=== PATIENT | female | born 1940 | race Caucasian/White ===

== ENCOUNTER → 2024-02-23 | Outpatient (CLI) | payer MEDICARE, SELFPAY ==
--- NOTE | 2024-02-23 10:09 | XR_ITS ---
Examination: Shoulder bilateral, 6 views Technique: Shoulder AP internal rotation, AP external rotation, Y view each shoulder total 6 views Exam date and time :February 23, 2024 1018 hours INDICATIONS: Bilateral shoulder pain beginning 2 months ago. FINDINGS: There are osteopenia Bilateral moderate narrowing glenohumeral joints Bilateral mild calcific tendinitis No fracture or dislocation involving either shoulder Bilateral moderate osteoarthritis acromioclavicular joints IMPRESSION: Bilateral moderate narrowing glenohumeral joints Bilateral mild shoulder calcific tendinitis
== END | disposition home or self-care (01) ==
PROVIDERS: PCP Internal Medicine; Referring Provider Internal Medicine; Visit Provider Internal Medicine
DX: M75.32 Calcific tendinitis of left shoulder (principal); M75.31 Calcific tendinitis of right shoulder; M25.812 Other specified joint disorders, left shoulder; M25.811 Other specified joint disorders, right shoulder
CPT/HCPCS: 73030

== ENCOUNTER → 2024-03-08 | Outpatient (CLI) | payer MEDICARE, BC, SELFPAY ==
--- NOTE | 2024-03-08 | XR_ITS ---
EXAMINATION: Cervical spine, 5 views Technique: Cervical spine AP, AP odontoid, lateral, bilateral obliques, 5 views Exam date and time: March 08, 2024 1141 hours INDICATIONS: Neck pain 3 months history cervical spine surgery FINDINGS: Severe osteopenia Reversal normal cervical lordosis with 2.5 mm anterolisthesis C2 on C3 Advanced degenerative disc disease C4-C5, C5-C6, C6-C7 with significant bilateral neural foraminal stenosis at these levels Intact odontoid IMPRESSION: Advanced degenerative disc disease C4-C5, C5-C6, C6-C7 with significant bilateral neural foraminal stenosis
== END | disposition home or self-care (01) ==
LOC: CDIM 10:50
PROVIDERS: PCP Internal Medicine; Referring Provider Internal Medicine; Visit Provider Internal Medicine
DX: M50.321 Other cervical disc degeneration at C4-C5 level (principal); M48.02 Spinal stenosis, cervical region
CPT/HCPCS: 72050

== ENCOUNTER → 2024-09-22 | Outpatient (CLI) | payer MEDICARE, BC, SELFPAY ==
[2024-09-22 10:35] LABS: Basophils # (Auto) 0.0 Thou/mm3 (0.0-0.2); Basophils % (Auto) 0 % (0-2.5); Eosinophils # (Auto) 0.0 Thou/mm3 (0.0-0.5); Eosinophils % (Auto) 1 % (0-10); Hematocrit 47.7 % (36.0-46.0); Hemoglobin 15.6 g/dL (12.0-16.0); Immature Granulocytes Auto 0.02 Thou/mm3 (0.00-0.00); Lymphocytes # (Auto) 1.0 Thou/mm3 (1.0-4.8); Lymphocytes % (Auto) 18 % (10-50); Mean Corpuscular HGB Conc 32.7 g/dl (31.0-37.0); Mean Corpuscular Hemoglobin 30.8 pg (25.0-35.0); Mean Corpuscular Volume 94 fL (80-100); Monocytes # (Auto) 0.4 Thou/mm3 (0.0-0.8); Monocytes % (Auto) 7 % (0-12); Neutrophils # (Auto) 3.8 Thou/mm3 (1.8-7.7); Neutrophils % (Auto) 73 % (37-80); Nucleated Red Blood Cell # 0.00 Thou/mm3 (0.00-0.00); Nucleated Red Blood Cell % 0 /100 WBC (0); Platelet Count 179 Thou/mm3 (140-440); RDW Standard Deviation 45.3 fL (36.4-46.3); Red Blood Count 5.07 Miln/mm3 (4.00-5.20); White Blood Count 5.2 Thou/mm3 (3.6-11.0)
[2024-09-22 10:45] LABS: Glucose Estimated Average 137 mg/dL (80-131); Hemoglobin A1C 6.4 % Hgb (4.8-6.0)
[2024-09-22 10:54] LABS: Alanine Aminotransferase 248 U/L (10-49); Albumin, Serum 4.7 gm/dL (3.4-4.8); Albumin/Globulin Ratio 2.1 (1.2-2.2); Alkaline Phosphatase 84 U/L (46-116); Anion Gap 11 (7-16); Aspartate Amino Transferase 272 U/L (0-34); BUN/Creatinine Ratio 10 Ratio (12-20); Bilirubin,Total 1.2 mg/dL (0.3-1.2); Blood Urea Nitrogen 11 mg/dL (9-23); Calcium 10.1 mg/dL (8.3-10.6); Calcium (Corrected) 10.1 mg/dL (8.5-10.1); Carbon Dioxide 26.3 mMol/L (20.0-31.0); Cardiac Risk Estimate 2.4 RATIO (3.7-5.6); Chloride 103 mMol/L (98-107); Cholesterol 168 mg/dL (132-200); Creatinine (Component) 1.1 mg/dL (0.6-1.3); Free T4 (Free Thyroxine) 1.20 ng/dL (0.89-1.76); Globulin 2.2 gm/dL (2.3-3.5); Glucose 151 mg/dL (74-106); HDL Cholesterol 70 mg/dL (40-60); LDL Cholesterol,Calculated 74 mg/dL (0-130); Osmolality,Calculated 281 (275-295); Potassium 4.4 mMol/L (3.4-5.1); Sodium 140 mMol/L (136-145); Thyroid Stimulating Hormone 1.26 uIU/mL (0.55-4.78); Total Protein 6.9 gm/dL (5.7-8.2); Triglycerides 119 mg/dL (30-150); eGFR 50 See Note
[2024-09-22 10:55] LABS: Vitamin D 25 Hydroxy Total 39.3 ng/mL (7.3-40.2)
== END | disposition home or self-care (01) ==
PROVIDERS: PCP Internal Medicine; Referring Provider Internal Medicine; Visit Provider Internal Medicine
DX: I11.0 Hypertensive heart disease with heart failure (principal); E11.9 Type 2 diabetes mellitus without complications; E55.9 Vitamin D deficiency, unspecified; E78.2 Mixed hyperlipidemia; E03.9 Hypothyroidism, unspecified
CPT/HCPCS: 36415; 80053; 80061; 82306; 83036; 84439; 84443; 85025

== ENCOUNTER 2024-10-18 20:46 | Inpatient (IN) | payer MEDICARE, BC, SELFPAY ==
[2024-10-18 21:05] VITALS: BP 129/94; PULSE 114; RESP 20; TEMP 36.7; O2SAT 96
--- NOTE | 2024-10-18 21:06 | PD.EDGIBLD ---
ED GI Bleed RME/HPI General Chief complaint: Abdominal Pain Stated complaint: BLACK TARRY STOOLS Time Seen by Provider: 10/18/24 21:17 Arrival date/time: 10/18/24 20:46 RME / HPI RME / HPI Narrative: See [facility] for Dr. Bonds's HPI documentation. Related Data Home Medications ?Medication ?Instructions ?Recorded ?Confirmed diltiazem HCl 300 mg 300 mg PO HS 04/14/22 10/19/24 capsule,extended release 24 hr gabapentin 400 mg capsule 400 mg PO TID 10/19/24 10/19/24 pantoprazole 40 mg tablet,delayed 40 mg PO QDAY 10/19/24 10/19/24 release valsartan 80 mg tablet 80 mg PO QDAY 10/19/24 10/19/24 Allergies Allergy/AdvReac Type Severity Reaction Status Date / Time No Known Allergies Allergy Verified 09/15/23 20:47 Review of Systems Review of Systems Systems Reviewed: All systems reviewed, normal except as documented Past Medical History Past Medical History NEUROLOGIC: Negative Seizures CARDIAC: Positive Hypercholesterolemia, Hypertension and Hypotension; Negative Cardiac Disorders or Congestive Heart Failure RESPIRATORY: Negative Chronic Obstructive Pulmonary Disease (COPD), Asthma or Sleep Apnea GASTROINTESTINAL: Positive Gastrointestinal Disorders, Gastrointestinal Bleed, Hiatal Hernia and Gastroesophageal Reflux Disease GENITOURINARY: Negative Genitourinary Disorders or Renal Disease REPRODUCTIVE: Positive Breast Cancer MUSCULOSKELETAL: Positive Musculoskeletal Disorders ENDOCRINE: Negative Endocrine Disorders, Diabetes Mellitus Type 1 or Diabetes Mellitus Type 2 HEMATOLOGIC: Negative Sickle Cell Disease PSYCHO/SOCIAL: Positive Depression OTHER HISTORY: Positive Hospitalization, Cancer and Breast Cancer; Negative Blood Transfusions, Blood Transfusion Reaction, Anesthesia Reactions, Chemotherapy or Radiation Therapy Surgical History SURGICAL: Positive Joint Replacement and Mastectomy (BILATERAL) Social History SMOKING STATUS: Never smoker SECOND HAND EXPOSURE: No ED Exam Narrative Physical exam: See [facility] for Dr. Bonds's physical exam documentation. Course Quality Measures none Orders Category Date Time Status Bedside COVID-19 Antigen Test NOW Care 10/18/24 21:21 Active Bedside Influenza A&B Antigen Test NOW Care 10/18/24 21:21 Completed COVID-19 Screening Questionnaire NOW Care 10/19/24 01:[address] Screening NOW Care 10/18/24 21:23 Active Decision to Admit X1 Care 10/19/24 01:50 Completed EKG (ED ONLY) *Do not use* NOW Care 10/18/24 21:23 Completed NPO NOW Care 10/19/24 01:50 Active Saline [Insert IV] NOW Care 10/18/24 21:21 Active Straight [In and Out Catheter] X1 Care 10/18/24 21:21 Active Consult to Gastroenterology Stat Cons 10/19/24 01:51 Ordered Diet NPO (NOW) Diet 10/19/24 01:[address] angio abdomen pelvis Stat Exams 10/18/24 21:22 Completed EKG (ED Only) Stat Exams 10/18/24 21:23 Draft XR chest 1V portable Stat Exams 10/18/24 21:23 Completed Amylase Stat Lab 10/18/24 21:39 Completed Bilirubin,Direct Stat Lab 10/18/24 21:39 Completed Blood Culture (Lab) Stat Lab 10/18/24 21:44 Received CBC Stat Lab 10/18/24 21:39 Completed CMP [Comprehensive Metabolic Panel] Stat Lab 10/18/24 21:39 Completed CRP [C-Reactive Protein] Stat Lab 10/18/24 21:39 Completed ESR [Sed Rate (ESR)] Stat Lab 10/18/24 21:39 Completed Hemoglobin and Hematocrit Stat Lab 10/19/24 01:17 Completed Lactate (Lactic Acid) Stat Lab 10/18/24 21:39 Completed Lactic Acid, 3 HR Stat Lab 10/19/24 01:17 Completed Lipase Stat Lab 10/18/24 21:39 Completed Magnesium Stat Lab 10/18/24 21:39 Completed PT [Prothrombin Time with INR] Stat Lab 10/18/24 21:39 Completed PTT [Partial Thromboplastin Time] Stat Lab 10/18/24 21:39 Completed Procalcitonin Stat Lab 10/18/24 21:39 Completed TSH [Thyroid Stimulating Hormone] Stat Lab 10/18/24 21:39 Completed Troponin I Stat Lab 10/18/24 21:39 Completed UA, C/S IF [Urinalysis, C/S if Indicated] Stat Lab 10/19/24 06:00 Completed Famotidine Inj [Pepcid Inj] Med 10/18/24 21:21 Discontinued 20 mg IVP X1 ONE Ondansetron Inj [Zofran Inj] Med 10/18/24 21:21 Discontinued 4 mg IVP X1 ONE Pantoprazole Inj [Protonix Inj] Med 10/18/24 21:21 Discontinued 80 mg IVP X1 ONE Sodium Chloride 0.9% 1000 ml [Ns] 1,000 ml Med 10/18/24 21:21 Discontinued IV 999 mls/hr Vital Signs Vital signs: Vital Signs Temperature 98.1 F 10/18/24 21:05 Pulse Rate 114 H 10/18/24 21:05 Respiratory Rate 20 10/18/24 21:05 Blood Pressure 129/94 H 10/18/24 21:05 Pulse Oximetry (%) 96 10/18/24 21:05 Oxygen Delivery Method Room Air 10/18/24 21:05 GI Bleed MDM Narrative MDM Narrative:: This section includes all my notes and documentations, including HPI, PE, and ED course. Porfirio Bonds MD HPI: 83yo female here with black tarry stools and coffee-ground emesis few hours ago. With generalized weakness. No abdominal pain or chest pain. Patient had similar symptoms 1 year ago when she needed blood transfusion. No other complaints reported. ROS: All negative except as documented in HPI. Physical Exam: General: Alert and oriented. No acute distress when remaining still. Eyes: Conjunctivae and lids clear. ENT: No nasal congestion. Neck: Supple. Heart: Sinus tachycardia noted. Lungs: No respiratory distress. Good air movement. No rhonchi, wheezing, rales. Abdomen: Soft and nontender. Normal bowel sounds. No distension. No rebound or guarding. Skin: Warm and dry. Neuro: Alert and oriented X 3. I reviewed all diagnostic test results. My interpretation of the EKG is sinus tachycardia with nonspecific ST-T changes. My interpretation of the chest x-ray is NAD. My review of the CT angio abdomen pelvis report is large hiatal hernia. Blood tests remarkable for Lactic Acid 2.4 and Hgb 13.8 (then decreased to 11.5). COVID/Influenza negative. At this point, diagnoses include: GI bleed Treatment here included: Pepcid IV fluid Zofran Protonix I discussed the case with our trustee of estate and hospitalist. About the presentation and exam and diagnostics and treatments here. And need of further care in the hospital. Will accept the patient. Porfirio Bonds MD Patient data External records reviewed:: [facility] previous records (Per chart review, patient was admitted here on 7/30/24 for anemia.) Clinical information provided by:: patient Social determinants that could affect healthcare access:: none Patient has the following chronic illnesses:: HTN, HLD, breast cancer s/p bilateral mastectomy, MDD, pancreatitis How is presenting disease/condition affected by chronic disease/condition?: uneffected by Evaluation data The following diagnostics were reviewed and interpreted by me:: lab results, radiology exam(s) and EKG tracing(s) (My interpretation of the EKG is: Sinus tachycardia (104 bpm) with nonspecific ST-T changes. Porfirio Bonds MD) Lab and/or radiology exams considered but not ordered:: none Interpretation Summary: I reviewed all diagnostic test results. My interpretation of the EKG is sinus tachycardia with nonspecific ST-T changes. My interpretation of the chest x-ray is NAD. My review of the CT angio abdomen pelvis report is large hiatal hernia. Blood tests remarkable for Lactic Acid 2.4 and Hgb 13.8 (then decreased to 11.5). COVID/Influenza negative. Medications / Prescriptions Medications or Prescriptions considered but not ordered:: none Medication administrations:: Medication Administration History Acetaminophen (Acetaminophen 325 Mg Tablet) 650 mg PO Q6H PRN PRN Reason: PAIN SCALE 1-3 (mild Stop: 11/18/24 04:56 Acetaminophen (Acetaminophen 325 Mg Tablet) 650 mg PO Q6H PRN PRN Reason: Fever >100.4 Stop: 11/18/24 04:56 Hydrocodone Bitart/Acetaminophen (Hydrocodone/Apap 10/325 Tab) 1 tab PO Q4HR PRN PRN Reason: PAIN SCALE 7-10 (Severe Stop: 10/24/24 04:56 Diltiazem 300mg Er (Capsules) 0 ea PO HS KILEY Stop: 11/18/24 20:59 Hydralazine HCl (Hydralazine Inj 20 Mg/Ml Vial) 10 mg IVP Q4HR PRN PRN Reason: SBP>180 Stop: 11/18/24 05:54 Ondansetron HCl (Ondansetron Inj 2 Mg/Ml Inj 2 Ml) 4 mg IVP Q6H PRN; Protocol PRN Reason: NAUSEA OR VOMITING Stop: 11/18/24 04:56 Oxycodone/Acetaminophen (Oxycodone/Apap 5/325 Tablet) 1 tab PO Q6H PRN PRN Reason: PAIN SCALE 4-6 (Moderate Stop: 10/24/24 04:56 Pantoprazole Sodium (Pantoprazole Inj 40 Mg Vial) 40 mg IVP BID KILEY Stop: 11/18/24 08:59 Last Admin: 10/19/24 08:14 Dose: 40 mg Documented By: SC Valsartan (Valsartan 80 Mg Tablet) 80 mg PO QDAY KILEY Stop: 11/19/24 08:59 Discontinued Medications Famotidine (Famotidine Inj 10 Mg/Ml Vial 2 Ml) 20 mg IVP X1 ONE Stop: 10/18/24 21:22 Last Admin: 10/18/24 21:52 Dose: 20 mg Documented By: ROSA Sodium Chloride (Ns) 1,000 mls @ 999 mls/hr IV .Q1H1M ONE Stop: 10/18/24 22:21 Last Infusion: 10/18/24 23:00 Dose: Infused Documented By: Admin: 10/18/24 21:54 Dose: 999 mls/hr Documented By: ROSA Non-Formulary Medication (Diltiazem Hcl) 300 mg PO HS KILEY Stop: 11/18/24 20:59 Ondansetron HCl (Ondansetron Inj 2 Mg/Ml Inj 2 Ml) 4 mg IVP X1 ONE; Protocol Stop: 10/18/24 21:22 Last Admin: 10/18/24 21:53 Dose: 4 mg Documented By: ROSA Pantoprazole Sodium (Pantoprazole Inj 40 Mg Vial) 80 mg IVP X1 ONE Stop: 10/18/24 21:22 Last Admin: 10/18/24 21:51 Dose: 80 mg Documented By: ROSA Treatment for me included Pepcid, IV fluid, Zofran, Protonix. Consultations Consultation(s) initiated? (list below): Yes Consultation #1 (Physician, Specialty, Details): I discussed the case with our trustee of estate and hospitalist. About the presentation and exam and diagnostics and treatments here. And need of further care in the hospital. Will accept the patient. Diagnosis GI bleed differential diagnosis: esophageal varices, Amanda-Wallis syndrome, Upper gastrointestinal hemorrhage, Lower gastrointestinal hemorrhage and melena Most likely diagnosis given after review of the tests above:: GI bleed Admission Indicated Admission indicated?: indicated Explain why admission is indicated or not indicated:: GI bleed Admission Request Was there a request for admission?: Yes Admission Attestation Admission request attestation: Discussed case with Hospitalist service regarding admission. Discussed patients ED course, exam findings, labs, and radiology results. Agreed to accept the patient for admission. Disposition Plan Disposition Plan: Admit Discharge Plan Plan Patient Disposition: Admit Acute Care w/in Hospital Problem List Clinical Impression: GI bleed
--- NOTE | 2024-10-18 21:22 | XR_ITS ---
Examination: CTA abdomen, with intravenous contrast. CTA pelvis, with intravenous contrast. 2-D sagittal and coronal reconstructions. 3-D reconstructions. Date and time of exam: October 19, 2024, 0034 hrs. Indications: Gastrointestinal bleeding today with black stools. CTDI vol (mgy) 8.05. DLP (MGycm) 197. Technique: Multiple CTA images, 2.0 mm slice thickness, obtained abdomen, pelvis, with the high-resolution 64 slice scanner. 100 cc Isovue-370. is administered intravenously. Sagittal and coronal 2-D reconstructions are obtained. 3-D reconstructions, angiographic images are obtained. 3-D postprocessing, including vascular maximum intensity projections. Low dose protocols were performed. One or more of the following dose reduction techniques were used; automated exposure control, adjustment of the mA and/or KV according to patient size, use of iterative reconstruction technique. Findings: No thoracic aortic aneurysmal dilatation No visualized pulmonary artery filling defects Large retrocardiac gastric hernia. Liver mildly irregular in contour. Absent gallbladder. Common bile duct 10 mm no common bile duct stones. Spleen is not enlarged. No pancreatic mass. Mild renal parenchymal scar formation. Abdominal aorta normal size and configuration. Normal appendix. Colonic diverticulosis. Atrophic uterus. Urinary bladder intact. No abnormal contrast extravasation in the gastrointestinal tract Severe osteopenia with advanced degenerative disc disease of the lower 4 lumbar levels Impression: No gastrointestinal bleeding identified, consider nuclear medicine red blood cell labeled study follow-up
--- NOTE | 2024-10-18 21:23 | EKG_ITS ---
[facility] Test Date: 2024-10-18 Pat Name: LOIS FLOYD Department: Room: - Gender: Female Ward Helper: : 1940 Requested By: Porfirio Stallings Order Number: [id number] Reading MD: Porfirio Stallings Measurements Intervals [place] Rate: 104 P: 25 OK: 168 QRS: -52 QRSD: 87 T: 63 QT: 331 QTc: 437 Interpretive Statements SINUS TACHYCARDIA POSSIBLE LEFT ATRIAL ENLARGEMENT [-0.1mV P-WAVE IN V1/V2] LEFT VENTRICULAR HYPERTROPHY AND ST-T CHANGE [VOLTAGE CRITERIA PLUS ST/T ABNORMALITY] POSSIBLE ANTERIOR MYOCARDIAL INFARCTION , OF INDETERMINATE AGE [30 ms Q WAVE IN V3/V4, OR R < 0.2 mV IN V4] INFERIOR MYOCARDIAL INFARCTION , PROBABLY OLD [40+ ms Q WAVE AND/OR ST/T ABNORMALITY IN II/aVF] Compared to ECG 09/14/2023 21:48:21 Left ventricular hypertrophy now present ST (T wave) deviation now present Myocardial infarct finding still present /store/S0/[id number]/ecg/[id number].pdf
--- NOTE | 2024-10-18 21:23 | XR_ITS ---
Examination: AP chest single view Technique: AP portable upright chest single view Date and time: October 18, 2024 2139 hrs., Comparison April 13, 2022 Indications: Shortness of breath today. Findings: Large retrocardiac gastric hernia. Mild prominence of ventricle. No pneumonia or pulmonary edema. Prominent osteopenia. Impression: No pneumonia or pulmonary edema.
[2024-10-18 21:33] VITALS: BMI 23.1
[2024-10-18 21:51] VITALS: BP 152/96; PULSE 102; RESP 25; O2SAT 95
[2024-10-18] MEDS: FAMOTIDINE INJ 10 MG/ML VIAL 2 ML 20 MG IVP (21:52)
[2024-10-18] MEDS: ONDANSETRON INJ 2 MG/ML INJ 2 ML 4 MG IVP (21:53)
[2024-10-18] MEDS: SODIUM CHLORIDE 0.9% 1000 ML 1,000 ML 999 ML IV (21:54)
[2024-10-18 22:07] LABS: Lactate (Lactic Acid) 2.4 mMol/L (0.4-2.0)
[2024-10-18 22:08] LABS: Basophils # (Auto) 0.0 Thou/mm3 (0.0-0.2); Basophils % (Auto) 0 % (0-2.5); Eosinophils # (Auto) 0.0 Thou/mm3 (0.0-0.5); Eosinophils % (Auto) 0 % (0-10); Hematocrit 42.7 % (36.0-46.0); Hemoglobin 13.8 g/dL (12.0-16.0); Immature Granulocytes Auto 0.06 Thou/mm3 (0.00-0.00); Lymphocytes # (Auto) 1.8 Thou/mm3 (1.0-4.8); Lymphocytes % (Auto) 17 % (10-50); Mean Corpuscular HGB Conc 32.3 g/dl (31.0-37.0); Mean Corpuscular Hemoglobin 30.9 pg (25.0-35.0); Mean Corpuscular Volume 96 fL (80-100); Monocytes # (Auto) 0.6 Thou/mm3 (0.0-0.8); Monocytes % (Auto) 5 % (0-12); Neutrophils # (Auto) 8.1 Thou/mm3 (1.8-7.7); Neutrophils % (Auto) 77 % (37-80); Nucleated Red Blood Cell # 0.00 Thou/mm3 (0.00-0.00); Nucleated Red Blood Cell % 0 /100 WBC (0); Platelet Count 204 Thou/mm3 (140-440); RDW Standard Deviation 46.6 fL (36.4-46.3); Red Blood Count 4.47 Miln/mm3 (4.00-5.20); White Blood Count 10.5 Thou/mm3 (3.6-11.0)
[2024-10-18 22:15] LABS: Sed Rate (ESR) 13 mm/hr (0-30)
[2024-10-18 22:24] LABS: INR 1.1 (0.9-1.3); Partial Thromboplastin Time 21.9 Seconds (22.0-36.0); Prothrombin Time 11.7 Seconds (9.0-12.2)
[2024-10-18 22:37] LABS: Alanine Aminotransferase 38 U/L (10-49); Albumin, Serum 4.5 gm/dL (3.4-4.8); Albumin/Globulin Ratio 2.3 (1.2-2.2); Alkaline Phosphatase 52 U/L (46-116); Amylase 65 U/L (30-118); Anion Gap 14 (7-16); Aspartate Amino Transferase 21 U/L (0-34); BUN/Creatinine Ratio 30 Ratio (12-20); Bilirubin,Direct 0.2 mg/dL (0.0-0.3); Bilirubin,Total 0.8 mg/dL (0.3-1.2); Blood Urea Nitrogen 27 mg/dL (9-23); C-Reactive Protein < 0.5 mg/dL (0.0-0.9); Calcium 11.7 mg/dL (8.3-10.6); Calcium (Corrected) 11.7 mg/dL (8.5-10.1); Carbon Dioxide 24.5 mMol/L (20.0-31.0); Chloride 107 mMol/L (98-107); Creatinine (Component) 0.9 mg/dL (0.6-1.3); Estimated Creatinine Clearance 40.2 mL/min (>60); Globulin 2.0 gm/dL (2.3-3.5); Glucose 196 mg/dL (74-106); Lipase 29 U/L (12-53); Magnesium 1.9 mg/dL (1.6-2.6); Osmolality,Calculated 298 (275-295); Potassium 4.1 mMol/L (3.4-5.1); Procalcitonin 0.07 ng/ml (0.0-0.49); Sodium 145 mMol/L (136-145); Thyroid Stimulating Hormone 2.20 uIU/mL (0.55-4.78); Total Protein 6.5 gm/dL (5.7-8.2); Troponin I < 0.002 ng/mL (0.0-0.045); eGFR > 60 See Note
[2024-10-19] VITALS (11 sets, daily range): BP systolic 129–168; BP diastolic 78–105; PULSE 80–97; RESP 12–32; TEMP 36.5–37.1; O2SAT 92–96
[2024-10-19 01:01] LABS: Reflex Lactate? Y
--- NOTE | 2024-10-19 01:17 | PRELIM_ITS ---
CT angiogram of abdomen and pelvis with intravenous contrast (axial sections with sagittal and coronal reformats) October 19, 2024 0034 hours Clinical History: GI bleed Comparison: Reference is made to the prior report dated September 15, 2023. Findings: The abdominal aorta demonstrates mild atheromatous calcification without evidence of dissection or aneurysm. The celiac, superior mesenteric, inferior mesenteric and bilateral renal arteries are patent to the extent visualized. The common iliac, external iliac and internal iliac arteries are patent bilaterally. The gallbladder is surgically absent. The liver, spleen, pancreas, adrenals and kidneys are unremarkable. A large hiatal hernia is present. No evidence of bowel obstruction. The appendix is within normal limits (axial images [id number]). There are multiple colonic diverticula without evidence of diverticulitis. The urinary bladder is unremarkable. The uterus and adnexa are unremarkable. There is no free fluid, free air or abscess. There is grade II anterolisthesis of L5 on S1. Levoscoliosis is noted centered at L3 vertebra. Degenerative changes are identified in the spine. Bibasilar atelectasis is present. Impression: No contrast extravasation in the stomach, small or large bowel loops to suggest active gastrointestinal hemorrhage at the time of examination. No evidence of abdominal aortic aneurysm or mesenteric vascular occlusion. Large hiatal hernia. Colonic diverticulosis without evidence of diverticulitis. Other findings as described above. Report Electronically Signed By: Effie Prieto 10/19/2024 1:17:09 AM [EST]
[2024-10-19 01:23] LABS: Lactic Acid, 3 HR 1.3 mMol/L (0.4-2.0)
[2024-10-19 01:24] LABS: Hematocrit 36.2 % (36.0-46.0); Hemoglobin 11.5 g/dL (12.0-16.0)
--- NOTE | 2024-10-19 04:36 | PC.NURSE ---
WE HAD DOWN TIME FROM [id number].
--- NOTE | 2024-10-19 04:58 | ESHP_ITS ---
Documentation for date of: 10/19/24 [facility] History of Present Illness History of present illness: This is an 83-year-old female PMHx of HLD, HTN, breast cancer s/p bilateral mastectomy, MDD, pancreatitis, and history of upper/lower GI bleed presented to the ED with dark liquidy stool and hematemesis. She was at her normal state of health. However 2 days ago she had an episode of black watery stool and has been having consistent dark stools since. Today this morning she had 2 episodes of hematemesis, although reports small amount less than a teaspoon each. Otherwise denies headache, visual changes, syncope or presyncope, fall or trauma, chest pain, shortness of breath, palpitations, abdominal pain, constipation, urinary urgency, frequency, dysuria or hematuria. She presented with similar symptoms last year with a hemoglobin of 6.8 and required blood transfusions. EGD then showed reflux esophagitis without signs of active bleed. Colonoscopy showed diverticulosis without evidence of active bleed. She had followed up with GI in [place] and had extensive workup which was negative to her knowledge. Past Medical History: * As above. Past Surgical History: * Bilateral mastectomy, cholecystectomy. Medications: * DILTIAZEM 200 mg ER daily, FAMOTIDINE. Allergies: * No known allergies. Family History: * Unknown cancer in sibling. Social History: * Denies tobacco, drug or alcohol use. ED Course: * Afebrile, BP 129/94, HR 114, satting 96% on room air. * Hgb initially 13.8 then 11.5 on repeat. No leukocytosis. PLT 164. * Coag panel within normal limits. * CHEM panel remarkable for BUN 27 with otherwise normal creatinine and GFR, lactic acid 2.4 > 1.3, calcium 11.7. Troponin was normal. * UA was negative for UTI. * CXR showed no active disease. * EKG shows sinus tachycardia without acute ST changes. Reason for admission: Acute GI bleed anemia warranting further workup. GI consulted, planning for EGD. Exam Vital Signs Temp Pulse Resp BP Pulse Ox O2 Del Method O2 Flow Rate 98.7 F 96 19 146/94 H 95 Nasal Cannula 2 10/19/24 00:49 10/19/24 00:49 10/19/24 00:49 10/19/24 00:49 10/19/24 00:49 10/19/24 00:49 10/19/24 00:49 Narrative Exam GENERAL * Normal appearing elderly female, NAD. HEENT * NCAT.?RANJAN. Oral mucosa is moist. Patent Nares NECK * Supple, nontender, no JVD. CHEST * RRR, no m/g/r * CTAB, no w/r/r, symmetrical expansion. ABDOMEN * Soft, flat, nontender. No guarding/rebound tenderness/masses. * Bowel sounds presents EXTREMITIES * No edema/cyanosis.? SKIN * Warm and dry, no jaundice/rashes. NEUROMUSCULAR * No lumbar or midline, no CVA, no paraspinal muscle spasm or tenderness. * Moves all 4 extremities well, with full ROM and good CSM. * ABURTO x4, CN II-XII grossly intact. * No focal neurologic deficits. PSYCHIATRY * Normal mood and affect, cooperative, no SI or HI or hallucinations. Results: Labs 10/19/24 05:29 10/19/24 05:29 Labs: Short CBC 10/18/24 10/19/24 Range/Units 21:39 01:17 WBC 10.5 (3.6-11.0) Thou/mm3 Hgb 13.8 11.5 L D (12.0-16.0) g/dL Hct 42.7 36.2 (36.0-46.0) % Plt Count 204 (140-440) Thou/mm3 BMP 10/18/24 21:39 Sodium 145 Potassium 4.1 Chloride 107 Carbon Dioxide 24.5 BUN 27 H Creatinine 0.9 Glucose 196 H Calcium 11.7 H Cardiac Enzymes 10/18/24 Range/Units 21:39 Troponin I < 0.002 (0.0-0.045) ng/mL Liver Function 10/18/24 Range/Units 21:39 Total Bilirubin 0.8 (0.3-1.2) mg/dL Direct Bilirubin 0.2 (0.0-0.3) mg/dL AST 21 (0-34) U/L ALT 38 (10-49) U/L Alkaline Phosphatase 52 (46-116) U/L Albumin 4.5 (3.4-4.8) gm/dL Quality Measures Quality Measures none Advance care planning discussed with:: patient Medications Home Medications and Allergies Home Medications ?Medication ?Instructions ?Recorded ?Confirmed ?Type diltiazem HCl 300 mg 300 mg PO HS 04/14/22 History capsule,extended release 24 hr gabapentin 400 mg capsule 400 mg PO TID 10/19/2410/19 History pantoprazole 40 mg tablet,delayed 40 mg PO QDAY 10/19/24 History release valsartan 80 mg tablet 80 mg PO QDAY 10/19/2410/19 History Allergies Allergy/AdvReac Type Severity Reaction Status Date / Time No Known Allergies Allergy Verified 09/15/23 20:47 Visit Medications Discontinued Medications Famotidine (Famotidine Inj 10 Mg/Ml Vial 2 Ml) 20 mg IVP X1 ONE Stop: 10/18/24 21:22 Last Admin: 10/18/24 21:52 Dose: 20 mg Sodium Chloride (Ns) 1,000 mls @ 999 mls/hr IV .Q1H1M ONE Stop: 10/18/24 22:21 Last Admin: 10/18/24 21:54 Dose: 999 mls/hr Ondansetron HCl (Ondansetron Inj 2 Mg/Ml Inj 2 Ml) 4 mg IVP X1 ONE; Protocol Stop: 10/18/24 21:22 Last Admin: 10/18/24 21:53 Dose: 4 mg Pantoprazole Sodium (Pantoprazole Inj 40 Mg Vial) 80 mg IVP X1 ONE Stop: 10/18/24 21:22 Last Admin: 10/18/24 21:51 Dose: 80 mg Assessment & Plan Plan This is an 83-year-old female PMHx of HLD, HTN, breast cancer s/p bilateral mastectomy, MDD, pancreatitis, and history of upper/lower GI bleed presented to the ED with dark liquidy stool and hematemesis. Acute GI bleed- upper versus lower Acute Anemia History of upper/lower GI bleed Lactic acidosis Two days ago, she had black, watery stool and has since had consistently dark stools. This morning, she had two small-volume episodes of hematemesis. She had a similar episode last year with a hemoglobin of 6.8 requiring transfusion; workup at that time, including EGD and colonoscopy, showed reflux esophagitis and diverticulosis without active bleeding. Follow-up GI evaluation was reportedly unremarkable. Recent labs show hemoglobin drop from 13.8 to 11.5, normal platelets (164), no leukocytosis, and normal coagulation panel. She is otherwise asymptomatic. ? Dr. Hauser consulted, pending EGD ? Transfuse hemoglobin less than 7 Tachycardia She had HR 114 with EKG showing sinus tachycardia without acute ST changes. She received 1 L IVF's, HR improved. HTN BP slightly elevated. ? Resume home DILTIAZEM 300 mg HS Hypercalcemia IV hydration F/U repeat labs Health maintenance Diet: NPO GI prophylaxis: PROTONIX DVT prophylaxis: SCDs Antibiotics: Not indicated CODE STATUS: FULL CODE Disposition: Pending EGD Case was discussed with attending physician, Dr. Anthony. Ry Forrest, DO PGY II This document was transcribed using voice recognition technology. Minor inaccuracies may be present. Attending Provider Attestation/Addendum After examination of the patient and review of the clinical data I feel that this patient needs admission to the hospital for further treatment/evaluation. I Jon Anthony MD, attest that I was physically present for mon portions of evaluation, and examined patient, labs and imagings and plan of care were discussed with IM residents team, and I agree with the findings and plans documented above.
[2024-10-19 05:57] LABS: Basophils # (Auto) 0.0 Thou/mm3 (0.0-0.2); Basophils % (Auto) 0 % (0-2.5); Eosinophils # (Auto) 0.0 Thou/mm3 (0.0-0.5); Eosinophils % (Auto) 1 % (0-10); Hematocrit 35.5 % (36.0-46.0); Hemoglobin 11.4 g/dL (12.0-16.0); Immature Granulocytes Auto 0.03 Thou/mm3 (0.00-0.00); Lymphocytes # (Auto) 1.5 Thou/mm3 (1.0-4.8); Lymphocytes % (Auto) 23 % (10-50); Mean Corpuscular HGB Conc 32.1 g/dl (31.0-37.0); Mean Corpuscular Hemoglobin 31.1 pg (25.0-35.0); Mean Corpuscular Volume 97 fL (80-100); Monocytes # (Auto) 0.4 Thou/mm3 (0.0-0.8); Monocytes % (Auto) 6 % (0-12); Neutrophils # (Auto) 4.6 Thou/mm3 (1.8-7.7); Neutrophils % (Auto) 69 % (37-80); Nucleated Red Blood Cell # 0.00 Thou/mm3 (0.00-0.00); Nucleated Red Blood Cell % 0 /100 WBC (0); Platelet Count 164 Thou/mm3 (140-440); RDW Standard Deviation 46.8 fL (36.4-46.3); Red Blood Count 3.66 Miln/mm3 (4.00-5.20); White Blood Count 6.6 Thou/mm3 (3.6-11.0)
[2024-10-19 06:19] LABS: Collection Type, Urine Clean Catch
[2024-10-19 06:27] LABS: Alanine Aminotransferase 27 U/L (10-49); Albumin, Serum 3.7 gm/dL (3.4-4.8); Albumin/Globulin Ratio 2.2 (1.2-2.2); Alkaline Phosphatase 41 U/L (46-116); Anion Gap 11 (7-16); Aspartate Amino Transferase 15 U/L (0-34); BUN/Creatinine Ratio 34 Ratio (12-20); Bilirubin,Total 0.7 mg/dL (0.3-1.2); Blood Urea Nitrogen 27 mg/dL (9-23); Calcium 10.4 mg/dL (8.3-10.6); Calcium (Corrected) 10.6 mg/dL (8.5-10.1); Carbon Dioxide 23.8 mMol/L (20.0-31.0); Chloride 110 mMol/L (98-107); Creatinine (Component) 0.8 mg/dL (0.6-1.3); Estimated Creatinine Clearance 45.2 mL/min (>60); Globulin 1.7 gm/dL (2.3-3.5); Glucose 125 mg/dL (74-106); Magnesium 1.7 mg/dL (1.6-2.6); Osmolality,Calculated 294 (275-295); Phosphorous 4.7 mg/dL (2.4-5.1); Potassium 4.6 mMol/L (3.4-5.1); Sodium 145 mMol/L (136-145); Total Protein 5.4 gm/dL (5.7-8.2); eGFR > 60 See Note
[2024-10-19 06:31] LABS: Bilirubin,Urine Negative (Negative); Blood,Urine Negative (Negative); Clarity,Urine Clear (Clear/Hazy); Color,Urine Colorless (Lt Yel-Yel); Culture Indicated,Urine Not Indicated; Glucose, Urine Negative (Negative); Ketones,Urine Negative (Negative); Leukocyte Esterase,Urine Negative (Negative); Nitrite,Urine Negative (Negative); PH,Urine 6.5 (5.0-7.0); Protein,Urine Negative (Neg - Trace); RBC,Urine 1 /hpf (0-3); Specific Gravity,Urine 1.049 (1.001-1.035); Squamous Epithelial Cell,Urine < 1 /hpf (0-5); Urobilinogen,Urine Negative mg/dL (0.0-1.0); WBC,Urine < 1 /hpf (0-5)
--- NOTE | 2024-10-19 13:56 | ESPR_ITS ---
<Statement entered by Olimpia Stewart MD - 10/26/24 07:12> I reviewed above note and agree with findings and plans. I have also personally examined the patient with medicine team and went over assessment and plan with medical team including agribusiness internship and resident physician. <Statement entered by Cj Christopher MD - 10/19/24 15:03> Overnight admission. No acute overnight events. Seen and examined at bedside and patient denies any abdominal pain at this time. No episodes of emesis since admission. Hemoglobin decreased from 13.8 to 11.5, vital signs stable as she is not tachycardic and saturating well on room air. GI consulted and pending endoscopy. Continue Protonix twice daily and as needed Zofran. Resumed home antihypertensives. ----- Note reviewed and agree with care plan as documented. Please refer to the note below for further details. Plan discussed with attending physician Dr. Pat Christopher MD PGY-2 Internal Medicine Documentation for date of: 10/19/24 Subjective Subjective Interval history: No overnight events. Hemoglobin 11.4 and stable. Patient resting comfortably in bed. EGD planned for today. Exam Vital Signs Temp Pulse Resp BP Pulse Ox O2 Del Method O2 Flow Rate 98.0 F 97 26 H 140/92 H 92 L Room Air 2 10/19/24 12:00 10/19/24 12:00 10/19/24 12:00 10/19/24 12:00 10/19/24 12:00 10/19/24 12:00 10/19/24 00:49 Narrative Exam General: Awake and in no acute distress. Conversational and non-toxic appearing. Neurologic: GCS 15. Alert and oriented x3, no gross neurological deficit, and patient able to move all 4 extremities. HEENT: Normocephalic, atraumatic, mucous membranes moist. Pupils reactive to light. Heart: Regular rate and rhythm, normal S1 and S2, no murmurs. Lungs: Clear to auscultation bilaterally with no wheezing or crackles. Abdomen: Soft, nondistended, nontender, positive bowel sounds. No guarding or rebound tenderness. Extremities: No edema. 2+ radial and dorsalis pedis pulses bilaterally. Skin: Warm. Dry. No rash or ecchymoses. Objective Labs 10/19/24 05:29 10/19/24 05:29 Labs: Laboratory Results - last 24 hr 10/18/24 10/19/24 10/19/24 21:39 01:17 05:29 WBC 10.5 6.6 RBC 4.47 3.66 L Hgb 13.8 11.5 L D 11.4 L Hct 42.7 36.2 35.5 L MCV 96 97 MCH 30.9 31.1 MCHC 32.3 32.1 RDW Std Deviation 46.6 H 46.8 H Plt Count 204 164 D Neut % (Auto) 77 69 Lymph % (Auto) 17 23 [place] % (Auto) 5 6 Eos % (Auto) 0 1 Baso % (Auto) 0 0 Neut # (Auto) 8.1 H 4.6 Lymph # (Auto) 1.8 1.5 [place] # (Auto) 0.6 0.4 Eos # (Auto) 0.0 0.0 Baso # (Auto) 0.0 0.0 Immature Gran # (Auto) 0.06 H 0.03 H Absolute Nucleated RBC 0.00 0.00 Immature Gran % 1 H 1 H Nucleated RBC % 0 0 ESR 13 PT 11.7 INR 1.1 APTT 21.9 L Sodium 145 145 Potassium 4.1 4.6 D Chloride 107 110 H Carbon Dioxide 24.5 23.8 Anion Gap 14 11 BUN 27 H 27 H Creatinine 0.9 0.8 Estim Creat Clear Calc 40.2 L 45.2 L eGFR > 60 > 60 BUN/Creatinine Ratio 30 H 34 H Glucose 196 H 125 H D Calculated Osmolality 298 H 294 Lactic Acid 2.4 H 1.3 Calcium 11.7 H 10.4 Corrected Calcium 11.7 H 10.6 H Phosphorus 4.7 Magnesium 1.9 1.7 Total Bilirubin 0.8 0.7 Direct Bilirubin 0.2 AST 21 15 ALT 38 27 Alkaline Phosphatase 52 41 L D Troponin I < 0.002 C-Reactive Prot, Quant < 0.5 Total Protein 6.5 5.4 L Albumin 4.5 3.7 D Globulin 2.0 L 1.7 L Albumin/Globulin Ratio 2.3 H 2.2 Amylase 65 Lipase 29 Procalcitonin 0.07 TSH 2.20 Ur Collection Type Urine Color Urine Clarity Urine pH Ur Specific [place] Urine Protein Urine Glucose (UA) Urine Ketones Urine Blood Urine Nitrite Urine Bilirubin Urine Urobilinogen (Auto) Ur Leukocyte Esterase Urine RBC Urine WBC Ur Squamous Epith Cells Urine Bacteria Ur Culture Indicated? Blood Type Antibody Screen Blood Bank Wristband ID 10/19/24 10/19/24 06:00 06:13 WBC RBC Hgb Hct MCV MCH MCHC RDW Std Deviation Plt Count Neut % (Auto) Lymph % (Auto) [place] % (Auto) Eos % (Auto) Baso % (Auto) Neut # (Auto) Lymph # (Auto) [place] # (Auto) Eos # (Auto) Baso # (Auto) Immature Gran # (Auto) Absolute Nucleated RBC Immature Gran % Nucleated RBC % ESR PT INR APTT Sodium Potassium Chloride Carbon Dioxide Anion Gap BUN Creatinine Estim Creat Clear Calc eGFR BUN/Creatinine Ratio Glucose Calculated Osmolality Lactic Acid Calcium Corrected Calcium Phosphorus Magnesium Total Bilirubin Direct Bilirubin AST ALT Alkaline Phosphatase Troponin I C-Reactive Prot, Quant Total Protein Albumin Globulin Albumin/Globulin Ratio Amylase Lipase Procalcitonin TSH Ur Collection Type Clean Catch Urine Color Colorless A Urine Clarity Clear Urine pH 6.5 Ur Specific [place] 1.049 H Urine Protein Negative Urine Glucose (UA) Negative Urine Ketones Negative Urine Blood Negative Urine Nitrite Negative Urine Bilirubin Negative Urine Urobilinogen (Auto) Negative Ur Leukocyte Esterase Negative Urine RBC 1 Urine WBC < 1 Ur Squamous Epith Cells < 1 Urine Bacteria None Ur Culture Indicated? Not Indicated Blood Type A Positive Antibody Screen NEGATIVE Blood Bank Wristband ID Yes Quality Measures Quality Measures none Advance care planning discussed with:: patient Assessment & Plan Assessment Current Active Medications: Generic Name Dose Route Start Last Admin Trade Name Freq PRN Reason Stop Dose Admin Acetaminophen 650 mg 10/19/24 04:57 Acetaminophen 325 Mg Tablet PO 11/18/24 04:56 Q6H PRN PAIN SCALE 1-3 (mild Acetaminophen 650 mg 10/19/24 04:57 Acetaminophen 325 Mg Tablet PO 11/18/24 04:56 Q6H PRN Fever >100.4 Hydrocodone Bitart/Acetaminophen 1 tab 10/19/24 04:57 Hydrocodone/Apap 10/325 Tab PO 10/24/24 04:56 Q4HR PRN PAIN SCALE 7-10 (Severe Diltiazem 300mg Er 0 ea 10/19/24 21:00 Capsules PO 11/18/24 20:59 HS KILEY Hydralazine HCl 10 mg 10/19/24 05:55 Hydralazine Inj 20 Mg/Ml Vial IVP 11/18/24 05:54 Q4HR PRN SBP>180 Ondansetron HCl 4 mg 10/19/24 04:57 Ondansetron Inj 2 Mg/Ml Inj 2 Ml IVP 11/18/24 04:56 Q6H PRN NAUSEA OR VOMITING Protocol Oxycodone/Acetaminophen 1 tab 10/19/24 04:57 Oxycodone/Apap 5/325 Tablet PO 10/24/24 04:56 Q6H PRN PAIN SCALE 4-6 (Moderate Pantoprazole Sodium 40 mg 10/19/24 09:00 10/19/24 08:14 Pantoprazole Inj 40 Mg Vial IVP 11/18/24 08:59 40 mg BID KILEY Administration Plan 83-year-old female with a past medical history of hyperlipidemia, hypertension, breast cancer status post bilateral mastectomy, MDD, pancreatitis, history of upper or lower GI bleed that presents to the ED with dark stool and hematemesis. She was found to have a hemoglobin of 13.8 which dropped to 11.5. EKG showed sinus tachycardia with no acute ST segment changes. The patient was admitted for her acute upper GI bleed. #Acute GI bleed upper versus lower #Normocytic anemia #History of upper versus lower GI bleed #Lactic acidosis (resolved) * Two days ago, she had black, watery stool and has since had consistently dark stools. * Morning of 10/18/2024, patient had had two small-volume episodes of hematemesis. She had a similar episode last year with a hemoglobin of 6.8 requiring transfusion; workup at that time, including EGD and colonoscopy, showed reflux esophagitis and diverticulosis without active bleeding. Follow-up GI evaluation was reportedly unremarkable. * Recent labs show hemoglobin drop from 13.8 to 11.5 to 11.4, normal platelets (164), no leukocytosis, and normal coagulation panel. She is otherwise asymptomatic. Plan: * Dr. Hauser consulted, pending EGD * Transfuse if hemoglobin less than 7 * N.p.o. #Sinus tachycardia (resolved) * EKG on arrival showed sinus tachycardia with a rate of [address] segment changes * The patient received 1 L of IV fluids, heart rate now 97 #History of hypertension * Patient slightly hypertensive, 140/92 Plan: * Resume home diltiazem 300 mg #Hypercalcemia * Corrected calcium was 11.7, 10.7 most recently Plan: * Continue hydration * Monitor calcium Health maintenance Diet: NPO GI prophylaxis: PROTONIX DVT prophylaxis: SCDs Antibiotics: Not indicated CODE STATUS: FULL CODE Disposition: Pending EGD Patient was seen and discussed with my attending physician Dr. Stewart. Bartolo Hallman DO PGY-1.
--- NOTE | 2024-10-19 14:00 | PC.SS ---
Rounding Note: Patient is pending EGD today.
--- NOTE | 2024-10-19 14:22 | PD.RESPRO ---
Documentation for date of: 10/19/24 Exam Vital Signs Temp Pulse Resp BP Pulse Ox O2 Del Method O2 Flow Rate 98.0 F 97 26 H 140/92 H 92 L Room Air 2 10/19/24 12:00 10/19/24 12:00 10/19/24 12:00 10/19/24 12:00 10/19/24 12:00 10/19/24 12:00 10/19/24 00:49 Objective Labs 10/19/24 05:29 10/19/24 05:29 Labs: Laboratory Results - last 24 hr 10/18/24 10/19/24 10/19/24 21:39 01:17 05:29 WBC 10.5 6.6 RBC 4.47 3.66 L Hgb 13.8 11.5 L D 11.4 L Hct 42.7 36.2 35.5 L MCV 96 97 MCH 30.9 31.1 MCHC 32.3 32.1 RDW Std Deviation 46.6 H 46.8 H Plt Count 204 164 D Neut % (Auto) 77 69 Lymph % (Auto) 17 23 [place] % (Auto) 5 6 Eos % (Auto) 0 1 Baso % (Auto) 0 0 Neut # (Auto) 8.1 H 4.6 Lymph # (Auto) 1.8 1.5 [place] # (Auto) 0.6 0.4 Eos # (Auto) 0.0 0.0 Baso # (Auto) 0.0 0.0 Immature Gran # (Auto) 0.06 H 0.03 H Absolute Nucleated RBC 0.00 0.00 Immature Gran % 1 H 1 H Nucleated RBC % 0 0 ESR 13 PT 11.7 INR 1.1 APTT 21.9 L Sodium 145 145 Potassium 4.1 4.6 D Chloride 107 110 H Carbon Dioxide 24.5 23.8 Anion Gap 14 11 BUN 27 H 27 H Creatinine 0.9 0.8 Estim Creat Clear Calc 40.2 L 45.2 L eGFR > 60 > 60 BUN/Creatinine Ratio 30 H 34 H Glucose 196 H 125 H D Calculated Osmolality 298 H 294 Lactic Acid 2.4 H 1.3 Calcium 11.7 H 10.4 Corrected Calcium 11.7 H 10.6 H Phosphorus 4.7 Magnesium 1.9 1.7 Total Bilirubin 0.8 0.7 Direct Bilirubin 0.2 AST 21 15 ALT 38 27 Alkaline Phosphatase 52 41 L D Troponin I < 0.002 C-Reactive Prot, Quant < 0.5 Total Protein 6.5 5.4 L Albumin 4.5 3.7 D Globulin 2.0 L 1.7 L Albumin/Globulin Ratio 2.3 H 2.2 Amylase 65 Lipase 29 Procalcitonin 0.07 TSH 2.20 Ur Collection Type Urine Color Urine Clarity Urine pH Ur Specific [place] Urine Protein Urine Glucose (UA) Urine Ketones Urine Blood Urine Nitrite Urine Bilirubin Urine Urobilinogen (Auto) Ur Leukocyte Esterase Urine RBC Urine WBC Ur Squamous Epith Cells Urine Bacteria Ur Culture Indicated? Blood Type Antibody Screen Blood Bank Wristband ID 10/19/24 10/19/24 06:00 06:13 WBC RBC Hgb Hct MCV MCH MCHC RDW Std Deviation Plt Count Neut % (Auto) Lymph % (Auto) [place] % (Auto) Eos % (Auto) Baso % (Auto) Neut # (Auto) Lymph # (Auto) [place] # (Auto) Eos # (Auto) Baso # (Auto) Immature Gran # (Auto) Absolute Nucleated RBC Immature Gran % Nucleated RBC % ESR PT INR APTT Sodium Potassium Chloride Carbon Dioxide Anion Gap BUN Creatinine Estim Creat Clear Calc eGFR BUN/Creatinine Ratio Glucose Calculated Osmolality Lactic Acid Calcium Corrected Calcium Phosphorus Magnesium Total Bilirubin Direct Bilirubin AST ALT Alkaline Phosphatase Troponin I C-Reactive Prot, Quant Total Protein Albumin Globulin Albumin/Globulin Ratio Amylase Lipase Procalcitonin TSH Ur Collection Type Clean Catch Urine Color Colorless A Urine Clarity Clear Urine pH 6.5 Ur Specific [place] 1.049 H Urine Protein Negative Urine Glucose (UA) Negative Urine Ketones Negative Urine Blood Negative Urine Nitrite Negative Urine Bilirubin Negative Urine Urobilinogen (Auto) Negative Ur Leukocyte Esterase Negative Urine RBC 1 Urine WBC < 1 Ur Squamous Epith Cells < 1 Urine Bacteria None Ur Culture Indicated? Not Indicated Blood Type A Positive Antibody Screen NEGATIVE Blood Bank Wristband ID Yes Quality Measures Quality Measures none Assessment & Plan Assessment Current Active Medications: Generic Name Dose Route Start Last Admin Trade Name Freq PRN Reason Stop Dose Admin Acetaminophen 650 mg 10/19/24 04:57 Acetaminophen 325 Mg Tablet PO 11/18/24 04:56 Q6H PRN PAIN SCALE 1-3 (mild Acetaminophen 650 mg 10/19/24 04:57 Acetaminophen 325 Mg Tablet PO 11/18/24 04:56 Q6H PRN Fever >100.4 Hydrocodone Bitart/Acetaminophen 1 tab 10/19/24 04:57 Hydrocodone/Apap 10/325 Tab PO 10/24/24 04:56 Q4HR PRN PAIN SCALE 7-10 (Severe Diltiazem 300mg Er 0 ea 10/19/24 21:00 Capsules PO 11/18/24 20:59 HS KILEY Hydralazine HCl 10 mg 10/19/24 05:55 Hydralazine Inj 20 Mg/Ml Vial IVP 11/18/24 05:54 Q4HR PRN SBP>180 Ondansetron HCl 4 mg 10/19/24 04:57 Ondansetron Inj 2 Mg/Ml Inj 2 Ml IVP 11/18/24 04:56 Q6H PRN NAUSEA OR VOMITING Protocol Oxycodone/Acetaminophen 1 tab 10/19/24 04:57 Oxycodone/Apap 5/325 Tablet PO 10/24/24 04:56 Q6H PRN PAIN SCALE 4-6 (Moderate Pantoprazole Sodium 40 mg 10/19/24 09:00 10/19/24 08:14 Pantoprazole Inj 40 Mg Vial IVP 11/18/24 08:59 40 mg BID KILEY Administration
--- NOTE | 2024-10-19 17:34 | PD.IMCONS ---
HPI Data of Consult Requesting Physician: Olimpia Stewart MD Primary Care Provider: Physician No Primary/Family Consult Narrative Reason for consult: Hematemesis, melena. History of present illness: 83 years of female admitted with history of hematemesis and melanotic stools Current hemoglobin hematocrit 11.4 and 35.5 Patient is well-known to me from last year in September when she underwent upper endoscopy which showed esophagitis large hiatal hernia and diffuse moderate inflammation of the gastric mucosa Colonoscopy on 09/16/2023 showed diverticulosis of the colon and internal hemorrhoids cc:: cc: Olimpia Stewart MD Review of Systems Review of Systems Systems Reviewed: All systems reviewed, normal except as documented Past Medical History Surgical History OTHER SURGICAL HX: Hyperlipidemia Essential hypertension Breast carcinoma status post bilateral mastectomy Pancreatitis Meds Home Medications and Allergies Home Medications ?Medication ?Instructions ?Recorded ?Confirmed ?Type diltiazem HCl 300 mg 300 mg PO HS 04/14/22 10/19/24 History capsule,extended release 24 hr gabapentin 400 mg capsule 400 mg PO TID 10/19/24 10/19/24 History pantoprazole 40 mg tablet,delayed 40 mg PO QDAY 10/19/24 10/19/24 History release valsartan 80 mg tablet 80 mg PO QDAY 10/19/24 10/19/24 History Allergies Allergy/AdvReac Type Severity Reaction Status Date / Time No Known Allergies Allergy Verified 09/15/23 20:47 Exam Vital Signs Temp Pulse Resp BP Pulse Ox O2 Del Method O2 Flow Rate 98.7 F 83 21 H 152/78 H 93 L Room Air 2 10/19/24 16:00 10/19/24 16:00 10/19/24 16:00 10/19/24 16:00 10/19/24 16:00 10/19/24 16:00 10/19/24 16:00 Routine Respiratory Exam Comments: Normal to auscultation Routine Abdominal Exam Comments: Soft nontender Results Labs 10/19/24 05:29 10/19/24 05:29 Labs: Short CBC 10/18/24 10/19/24 10/19/24 Range/Units 21:39 01:17 05:29 WBC 10.5 6.6 (3.6-11.0) Thou/mm3 Hgb 13.8 11.5 L D 11.4 L (12.0-16.0) g/dL Hct 42.7 36.2 35.5 L (36.0-46.0) % Plt Count 204 164 D (140-440) Thou/mm3 BMP 10/18/24 10/19/24 21:39 05:29 Sodium 145 145 Potassium 4.1 4.6 D Chloride 107 110 H Carbon Dioxide 24.5 23.8 BUN 27 H 27 H Creatinine 0.9 0.8 Glucose 196 H 125 H D Calcium 11.7 H 10.4 Cardiac Enzymes 10/18/24 Range/Units 21:39 Troponin I < 0.002 (0.0-0.045) ng/mL Liver Function 10/18/24 10/19/24 Range/Units 21:39 05:29 Total Bilirubin 0.8 0.7 (0.3-1.2) mg/dL Direct Bilirubin 0.2 (0.0-0.3) mg/dL AST 21 15 (0-34) U/L ALT 38 27 (10-49) U/L Alkaline Phosphatase 52 41 L D (46-116) U/L Albumin 4.5 3.7 D (3.4-4.8) gm/dL Urine 10/19/24 Range/Units 06:00 Urine Color Colorless A (Lt Yel-Yel) Urine Clarity Clear (Clear/Hazy) Urine pH 6.5 (5.0-7.0) Ur Specific [place] 1.049 H (1.001-1.035) Urine Protein Negative (Neg - Trace) Urine Glucose (UA) Negative (Negative) Assessment and Plan Additional Assessment & Plan Additional Plan: Melena Hematemesis Plan Serial CBC N.p.o. midnight tonight except p.o. meds Consent obtained for fiberoptic esophagogastroduodenoscopy with possible biopsy possible therapeutic intervention under intravenous moderate sedation IV Protonix Will follow the patient other medical problems include Hyperlipidemia Essential hypertension breast carcinoma status post bilateral mastectomy History of pancreatitis Thank you very much for the opportunity to participate in the care of this patient
[2024-10-19] MEDS: DILTIAZEM 300 MG PO (20:30)
[2024-10-20] VITALS (18 sets, daily range): BP systolic 97–155; BP diastolic 63–108; PULSE 56–83; RESP 11–23; TEMP 36.1–36.8; O2SAT 92–98; BMI 23.0
[2024-10-20 06:10] LABS: Basophils # (Auto) 0.0 Thou/mm3 (0.0-0.2); Basophils % (Auto) 1 % (0-2.5); Eosinophils # (Auto) 0.1 Thou/mm3 (0.0-0.5); Eosinophils % (Auto) 1 % (0-10); Hematocrit 34.7 % (36.0-46.0); Hemoglobin 11.1 g/dL (12.0-16.0); Immature Granulocytes Auto 0.02 Thou/mm3 (0.00-0.00); Lymphocytes # (Auto) 1.8 Thou/mm3 (1.0-4.8); Lymphocytes % (Auto) 37 % (10-50); Mean Corpuscular HGB Conc 32.0 g/dl (31.0-37.0); Mean Corpuscular Hemoglobin 30.5 pg (25.0-35.0); Mean Corpuscular Volume 95 fL (80-100); Monocytes # (Auto) 0.4 Thou/mm3 (0.0-0.8); Monocytes % (Auto) 7 % (0-12); Neutrophils # (Auto) 2.6 Thou/mm3 (1.8-7.7); Neutrophils % (Auto) 54 % (37-80); Nucleated Red Blood Cell # 0.00 Thou/mm3 (0.00-0.00); Nucleated Red Blood Cell % 0 /100 WBC (0); Platelet Count 166 Thou/mm3 (140-440); RDW Standard Deviation 45.8 fL (36.4-46.3); Red Blood Count 3.64 Miln/mm3 (4.00-5.20); White Blood Count 4.8 Thou/mm3 (3.6-11.0)
[2024-10-20 06:54] LABS: Alanine Aminotransferase 23 U/L (10-49); Albumin, Serum 3.9 gm/dL (3.4-4.8); Albumin/Globulin Ratio 2.2 (1.2-2.2); Alkaline Phosphatase 41 U/L (46-116); Anion Gap 11 (7-16); Aspartate Amino Transferase 16 U/L (0-34); BUN/Creatinine Ratio 19 Ratio (12-20); Bilirubin,Total 0.8 mg/dL (0.3-1.2); Blood Urea Nitrogen 15 mg/dL (9-23); Calcium 9.9 mg/dL (8.3-10.6); Calcium (Corrected) 10.0 mg/dL (8.5-10.1); Carbon Dioxide 26.1 mMol/L (20.0-31.0); Chloride 106 mMol/L (98-107); Creatinine (Component) 0.8 mg/dL (0.6-1.3); Estimated Creatinine Clearance 45.2 mL/min (>60); Globulin 1.8 gm/dL (2.3-3.5); Glucose 107 mg/dL (74-106); Magnesium 1.6 mg/dL (1.6-2.6); Osmolality,Calculated 285 (275-295); Phosphorous 3.9 mg/dL (2.4-5.1); Potassium 4.1 mMol/L (3.4-5.1); Sodium 143 mMol/L (136-145); Total Protein 5.7 gm/dL (5.7-8.2); eGFR > 60 See Note
[2024-10-20] MEDS: VALSARTAN 80 MG TABLET PO (09:04)
--- NOTE | 2024-10-20 09:37 | PC.SS ---
CONTAINER PACKER OPERATOR conducted bedside contact with the patient conduct initial assessment and to discuss discharge planning.? Patient confirmed demographic information.? Patient resides alone at home.? Patient is a retired INFO PRINT PRESS OPERATOR.? Patient does not utilize any form of DME to assist with ambulation.? Patient does not utilize home oxygen.? Patient describes the ability to complete ADL?s independently.? Patient reports still possessing the ability to drive.? Patient identified granddaughter, Lauren Frances ; as medical surrogate decision maker.? Patient?s PCP is Dr. Leiva.? Patient does not participate with dialysis.? Patient?s pain specialist is María Bro.? Patient utilizes [facility] for medication services.? Plan is for the patient to return home at the time of discharge.? Patient confirmed access to basic utilities and provisions.? Friend, Jennifer; will provide transportation on behalf of the patient. ?No further discharge needs identified by the patient.? No further intervention required at this time, social welfare clerk will be available to address any further concerns.? Next of Kin: Lauren Juan Daniel D/C Plan: Home
--- NOTE | 2024-10-20 12:01 | ESPR_ITS ---
<Statement entered by Olimpia Stewart MD - 10/26/24 07:13> I reviewed above note and agree with findings and plans. I have also personally examined the patient with medicine team and went over assessment and plan with medical team including regulatory intern and resident physician. Documentation for date of: 10/20/24 Subjective Subjective Interval history: No overnight events. Hemoglobin 11.4 and stable. Patient resting comfortably in bed. No bodily aches. 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 EGD could not be completed today because patient was found to be in atrial fibrillation with RVR and was postponed to today as a result. Exam Vital Signs Temp Pulse Resp BP Pulse Ox O2 Del Method O2 Flow Rate 96.9 F 78 11 L 125/77 97 Room Air 2 10/20/24 08:00 10/20/24 09:04 10/20/24 08:00 10/20/24 09:04 10/20/24 08:00 10/20/24 08:00 10/19/24 16:00 Narrative Exam General: Awake and in no acute distress. Conversational and non-toxic appearing. Neurologic: GCS 15. Alert and oriented x3, no gross neurological deficit, and patient able to move all 4 extremities. HEENT: Normocephalic, atraumatic, mucous membranes moist. Pupils reactive to light. Heart: Regular rate and rhythm, normal S1 and S2, no murmurs. Lungs: Clear to auscultation bilaterally with no wheezing or crackles. Abdomen: Soft, nondistended, nontender, positive bowel sounds. No guarding or rebound tenderness. Extremities: No edema. 2+ radial and dorsalis pedis pulses bilaterally. Skin: Warm. Dry. No rash or ecchymoses. Objective Labs 10/21/24 04:39 10/21/24 04:39 Labs: Laboratory Results - last 24 hr 10/20/24 05:35 WBC 4.8 RBC 3.64 L Hgb 11.1 L Hct 34.7 L MCV 95 MCH 30.5 MCHC 32.0 RDW Std Deviation 45.8 Plt Count 166 Neut % (Auto) 54 Lymph % (Auto) 37 [place] % (Auto) 7 Eos % (Auto) 1 Baso % (Auto) 1 Neut # (Auto) 2.6 Lymph # (Auto) 1.8 [place] # (Auto) 0.4 Eos # (Auto) 0.1 Baso # (Auto) 0.0 Immature Gran # (Auto) 0.02 H Absolute Nucleated RBC 0.00 Immature Gran % 0 Nucleated RBC % 0 Sodium 143 Potassium 4.1 D Chloride 106 Carbon Dioxide 26.1 Anion Gap 11 BUN 15 Creatinine 0.8 Estim Creat Clear Calc 45.2 L eGFR > 60 BUN/Creatinine Ratio 19 Glucose 107 H Calculated Osmolality 285 Calcium 9.9 Corrected Calcium 10.0 Phosphorus 3.9 Magnesium 1.6 Total Bilirubin 0.8 AST 16 ALT 23 Alkaline Phosphatase 41 L Total Protein 5.7 Albumin 3.9 Globulin 1.8 L Albumin/Globulin Ratio 2.2 Quality Measures Quality Measures none Advance care planning discussed with:: patient Assessment & Plan Assessment Current Active Medications: Generic Name Dose Route Start Last Admin Trade Name Freq PRN Reason Stop Dose Admin Acetaminophen 650 mg 10/19/24 04:57 Acetaminophen 325 Mg Tablet PO 11/18/24 04:56 Q6H PRN PAIN SCALE 1-3 (mild Acetaminophen 650 mg 10/19/24 04:57 Acetaminophen 325 Mg Tablet PO 11/18/24 04:56 Q6H PRN Fever >100.4 Hydrocodone Bitart/Acetaminophen 1 tab 10/19/24 04:57 10/20/24 09:31 Hydrocodone/Apap 10/325 Tab PO 10/24/24 04:56 1 tab Q4HR PRN Administration PAIN SCALE 7-10 (Severe Diltiazem 300mg Er 0 ea 10/19/24 21:00 10/19/24 20:30 Capsules PO 11/18/24 20:59 1 capsule HS KILEY Administration Hydralazine HCl 10 mg 10/19/24 05:55 Hydralazine Inj 20 Mg/Ml Vial IVP 11/18/24 05:54 Q4HR PRN SBP>180 Ondansetron HCl 4 mg 10/19/24 04:57 Ondansetron Inj 2 Mg/Ml Inj 2 Ml IVP 11/18/24 04:56 Q6H PRN NAUSEA OR VOMITING Protocol Oxycodone/Acetaminophen 1 tab 10/19/24 04:57 Oxycodone/Apap 5/325 Tablet PO 10/24/24 04:56 Q6H PRN PAIN SCALE 4-6 (Moderate Pantoprazole Sodium 40 mg 10/19/24 09:00 10/20/24 09:04 Pantoprazole Inj 40 Mg Vial IVP 11/18/24 08:59 40 mg BID KILEY Administration Valsartan 80 mg 10/20/24 09:00 10/20/24 09:04 Valsartan 80 Mg Tablet PO 11/19/24 08:59 80 mg QDAY KILEY Administration Plan 83-year-old female with a past medical history of hyperlipidemia, hypertension, breast cancer status post bilateral mastectomy, MDD, pancreatitis, history of upper or lower GI bleed that presents to the ED with dark stool and hematemesis. She was found to have a hemoglobin of 13.8 which dropped to 11.5. EKG showed sinus tachycardia with no acute ST segment changes. The patient was admitted for her acute upper GI bleed. #Acute GI bleed upper versus lower #Normocytic anemia #History of upper versus lower GI bleed #Lactic acidosis (resolved) * Two days ago, she had black, watery stool and has since had consistently dark stools. * Morning of 10/18/2024, patient had had two small-volume episodes of hematemesis. She had a similar episode last year with a hemoglobin of 6.8 requiring transfusion; workup at that time, including EGD and colonoscopy, showed reflux esophagitis and diverticulosis without active bleeding. Follow-up GI evaluation was reportedly unremarkable. * Recent labs show hemoglobin drop from 13.8 to 11.1 in a matter of couple days, normal platelets (164), no leukocytosis, and normal coagulation panel. She is otherwise asymptomatic. * EGD could not be performed yesterday because she was found to be tachycardic A-fib with RVR, and was postponed to 10/20/2024. Plan: * Dr. Hauser consulted, pending EGD * Transfuse if hemoglobin less than 7 * N.p.o. #Sinus tachycardia (resolved) * EKG on arrival showed sinus tachycardia with a rate of [address] segment changes * The patient received 1 L of IV fluids, heart rate now 97 #History of hypertension * Patient slightly hypertensive, 140/92 Plan: * Resume home diltiazem 300 mg #Hypercalcemia, resolved * Corrected calcium was 11.7 to 10.0 most recently Plan: * Continue hydration * Monitor calcium Health maintenance Diet: NPO GI prophylaxis: PROTONIX DVT prophylaxis: SCDs Antibiotics: Not indicated CODE STATUS: FULL CODE Disposition: Pending EGD Patient was seen and discussed with my attending physician Dr. Stewart. Bartolo Hallman DO PGY-1.
--- NOTE | 2024-10-20 17:10 | SUR.PHASEI ---
1710: pt received from OR via [employer]. received report from MASOOD Conklin. pt alert and oriented. no s/s of resp. distress or discomfort. no s/s of pain or discomfort.
--- NOTE | 2024-10-20 17:30 | SUR.PHASEI ---
report given to MASOOD Parsons at this time.
--- NOTE | 2024-10-20 17:42 | SUR.PHASEI ---
1742: pt transfer back to room 265. pt alert and oriented. no s/s of resp. distress or discomfort. no s/s of pain or discomfort.
[2024-10-20] MEDS: DILTIAZEM 300 MG PO (20:31)
--- NOTE | 2024-10-20 23:29 | XR_ITS ---
Examination: AP chest single view Technique one AP portable semiupright chest single view Date and time: October 20, 2024 11:30 PM Comparison October 18, 2024 Indications: Severe chest pain beginning 2 days ago. Findings: Large retrocardiac gastric hernia Suspicious for pneumonia left base Right lung clear No pulmonary edema Impression: Suspicious for pneumonia left base
--- NOTE | 2024-10-20 23:30 | EKG_ITS ---
[facility] Test Date: 2024-10-20 Pat Name: LOIS FLOYD Department: Room: S265A Gender: Female Activity Specialist: PÉREZ : 1940 Requested By: Jon Srinivasan Order Number: [id number] Reading MD: Jon Srinivasan Measurements Intervals [place] Rate: 77 P: 11 RI: 203 QRS: -24 QRSD: 84 T: 12 QT: 393 QTc: 445 Interpretive Statements SINUS RHYTHM MINIMAL VOLTAGE CRITERIA FOR LVH, CONSIDER NORMAL VARIANT POSSIBLE ANTERIOR MYOCARDIAL INFARCTION , OF INDETERMINATE AGE Compared to ECG 10/18/2024 21:38:09 Sinus tachycardia no longer present ST (T wave) deviation no longer present Myocardial infarct finding still present /store/S0/[id number]
--- NOTE | 2024-10-20 23:47 | PD.EVENT ---
Documentation for date of: 10/20/24 Event Note Event Note: Rapid response called around 1120 for chest pain, patient describes focal chest pain in lower mid chest/upper epigastric area, pressure-like with has been continuous for past 15 to 20 minutes with intensity 8/10. EKG was negative for acute changes with no noted ST/T wave/LBBB, CXR read noted for suspicion of pneumonia with no troponin elevation. Patient was given 1 mg of IV morphine and famotidine IV.
[2024-10-20] MEDS: MORPHINE SULF INJ 4 MG/ML VIAL 1 MG IVP (23:53)
[2024-10-21] VITALS (8 sets, daily range): BP systolic 100–127; BP diastolic 58–79; PULSE 63–99; RESP 14–26; TEMP 36.1–37.1; O2SAT 95–98; BMI 23.0
[2024-10-21 00:05] LABS: Alanine Aminotransferase 42 U/L (10-49); Albumin, Serum 4.1 gm/dL (3.4-4.8); Albumin/Globulin Ratio 2.1 (1.2-2.2); Alkaline Phosphatase 48 U/L (46-116); Anion Gap 10 (7-16); Aspartate Amino Transferase 64 U/L (0-34); BUN/Creatinine Ratio 19 Ratio (12-20); Bilirubin,Total 1.0 mg/dL (0.3-1.2); Blood Urea Nitrogen 19 mg/dL (9-23); Calcium 9.5 mg/dL (8.3-10.6); Calcium (Corrected) 9.5 mg/dL (8.5-10.1); Carbon Dioxide 27.3 mMol/L (20.0-31.0); Chloride 105 mMol/L (98-107); Creatinine (Component) 1.0 mg/dL (0.6-1.3); Estimated Creatinine Clearance 36.2 mL/min (>60); Globulin 2.0 gm/dL (2.3-3.5); Glucose 109 mg/dL (74-106); Magnesium 1.9 mg/dL (1.6-2.6); Osmolality,Calculated 286 (275-295); Potassium 3.7 mMol/L (3.4-5.1); Sodium 142 mMol/L (136-145); Total Protein 6.1 gm/dL (5.7-8.2); Troponin I < 0.002 ng/mL (0.0-0.045); eGFR 56 See Note
[2024-10-21] MEDS: NITROGLYCERIN 0.4 MG SUBL BTL #25 SL (01:02)
[2024-10-21] MEDS: FAMOTIDINE INJ 10 MG/ML VIAL 2 ML 20 MG IVP (01:16)
[2024-10-21 05:51] LABS: Basophils # (Auto) 0.0 Thou/mm3 (0.0-0.2); Basophils % (Auto) 0 % (0-2.5); Eosinophils # (Auto) 0.0 Thou/mm3 (0.0-0.5); Eosinophils % (Auto) 0 % (0-10); Hematocrit 32.7 % (36.0-46.0); Hemoglobin 10.6 g/dL (12.0-16.0); Immature Granulocytes Auto 0.03 Thou/mm3 (0.00-0.00); Lymphocytes # (Auto) 1.0 Thou/mm3 (1.0-4.8); Lymphocytes % (Auto) 14 % (10-50); Mean Corpuscular HGB Conc 32.4 g/dl (31.0-37.0); Mean Corpuscular Hemoglobin 31.6 pg (25.0-35.0); Mean Corpuscular Volume 98 fL (80-100); Monocytes # (Auto) 0.4 Thou/mm3 (0.0-0.8); Monocytes % (Auto) 6 % (0-12); Neutrophils # (Auto) 5.6 Thou/mm3 (1.8-7.7); Neutrophils % (Auto) 79 % (37-80); Nucleated Red Blood Cell # 0.00 Thou/mm3 (0.00-0.00); Nucleated Red Blood Cell % 0 /100 WBC (0); Platelet Count 153 Thou/mm3 (140-440); RDW Standard Deviation 47.1 fL (36.4-46.3); Red Blood Count 3.35 Miln/mm3 (4.00-5.20); White Blood Count 7.1 Thou/mm3 (3.6-11.0)
[2024-10-21 06:24] LABS: Alanine Aminotransferase 234 U/L (10-49); Albumin, Serum 3.8 gm/dL (3.4-4.8); Albumin/Globulin Ratio 2.1 (1.2-2.2); Alkaline Phosphatase 58 U/L (46-116); Anion Gap 13 (7-16); Aspartate Amino Transferase 419 U/L (0-34); BUN/Creatinine Ratio 14 Ratio (12-20); Bilirubin,Total 1.6 mg/dL (0.3-1.2); Blood Urea Nitrogen 17 mg/dL (9-23); Calcium 9.6 mg/dL (8.3-10.6); Calcium (Corrected) 9.8 mg/dL (8.5-10.1); Carbon Dioxide 24.7 mMol/L (20.0-31.0); Chloride 104 mMol/L (98-107); Creatinine (Component) 1.2 mg/dL (0.6-1.3); Estimated Creatinine Clearance 30.1 mL/min (>60); Globulin 1.8 gm/dL (2.3-3.5); Glucose 127 mg/dL (74-106); Magnesium 1.8 mg/dL (1.6-2.6); Osmolality,Calculated 286 (275-295); Phosphorous 4.7 mg/dL (2.4-5.1); Potassium 3.9 mMol/L (3.4-5.1); Sodium 142 mMol/L (136-145); Total Protein 5.6 gm/dL (5.7-8.2); eGFR 45 See Note
--- NOTE | 2024-10-21 08:05 | XR_ITS ---
Examination: Abdomen sonogram, Limited Date and time of exam: October 21, 2024, 0814 hrs. Indications: Elevated liver function tests on laboratory examination this week Technique: Real-time liriano scale transabdominal sonographic images of the upper abdomen obtained. Findings: Absent gallbladder. Normal common bile duct 0.3 cm. Pancreatic head 2.4 cm. Liver 14.6 cm fatty infiltration irregular contour. Normal hepatopedal portal venous flow Patent IVC. Impression: Normal common bile duct Suspect primary hepatocellular disease
[2024-10-21] MEDS: VALSARTAN 80 MG TABLET PO (09:55)
[2024-10-21 10:32] LABS: Lipase 219 U/L (12-53)
[2024-10-21] MEDS: GABAPENTIN 100 MG CAPSULE 400 MG PO ×2 (11:01→20:38)
--- NOTE | 2024-10-21 12:18 | ESPR_ITS ---
<Statement entered by Olimpia Stewart MD - 10/26/24 07:14> I reviewed above note and agree with findings and plans. I have also personally examined the patient with medicine team and went over assessment and plan with medical team including merchandising internship and resident physician. <Statement entered by Cj Christopher MD - 10/21/24 13:04> Rapid response called last night for chest discomfort and cardiac workup was negative. Restarted patient home gabapentin but renally dosed. LFTs and T. bili elevated in last 24 hours so will evaluate with right upper quadrant ultrasound and lipase. Underwent EGD yesterday that showed esophagitis, gastritis and hiatal hernia but no signs of bleeding. Hemoglobin dropped but generally stable. Will continue with PUD disease diet per GI. ----- Note reviewed and agree with care plan as documented. Please refer to the note below for further details. Plan discussed with attending physician Dr. Pat Christopher MD PGY-2 Internal Medicine Documentation for date of: 10/21/24 Subjective Subjective Interval history: Patient had a rapid response called around 1130 last night for pain in the lower chest and midepigastric area described as pressure that went on for about 15 to 20 minutes with intensity 8 out of 10. EKG was negative for any acute ST segment changes, troponins were not elevated. Chest x-ray was suspicious for pneumonia. Patient was given 1 mg of IV morphine and IV famotidine. The patient's LFTs, total bilirubin, and lipase also increased. Liver ultrasound ordered. Will follow-up with report. Exam Vital Signs Temp Pulse Resp BP Pulse Ox O2 Del Method O2 Flow Rate 97.0 F 72 20 101/58 L 95 Nasal Cannula 2 10/21/24 08:00 10/21/24 09:55 10/21/24 08:00 10/21/24 09:55 10/21/24 08:00 10/21/24 08:00 10/21/24 08:00 Narrative Exam General: Awake and in no acute distress. Conversational and non-toxic appearing. Neurologic: GCS 15. Alert and oriented x3, no gross neurological deficit, and patient able to move all 4 extremities. HEENT: Normocephalic, atraumatic, mucous membranes moist. Pupils reactive to light. Heart: Regular rate and rhythm, normal S1 and S2, grade 2 systolic ejection murmur. Lungs: Clear to auscultation bilaterally with no wheezing or crackles. Abdomen: Soft, nondistended, nontender, positive bowel sounds. No guarding or rebound tenderness. Extremities: No edema. 2+ radial and dorsalis pedis pulses bilaterally. Skin: Warm. Dry. No rash or ecchymoses. Objective Labs 10/21/24 04:39 10/21/24 04:39 Labs: Laboratory Results - last 24 hr 10/20/24 10/21/24 23:39 04:39 WBC 7.1 D RBC 3.35 L Hgb 10.6 L Hct 32.7 L MCV 98 MCH 31.6 MCHC 32.4 RDW Std Deviation 47.1 H Plt Count 153 Neut % (Auto) 79 Lymph % (Auto) 14 [place] % (Auto) 6 Eos % (Auto) 0 Baso % (Auto) 0 Neut # (Auto) 5.6 Lymph # (Auto) 1.0 [place] # (Auto) 0.4 Eos # (Auto) 0.0 Baso # (Auto) 0.0 Immature Gran # (Auto) 0.03 H Absolute Nucleated RBC 0.00 Immature Gran % 0 Nucleated RBC % 0 Sodium 142 142 Potassium 3.7 3.9 Chloride 105 104 Carbon Dioxide 27.3 24.7 Anion Gap 10 13 BUN 19 17 Creatinine 1.0 1.2 Estim Creat Clear Calc 36.2 L 30.1 L eGFR 56 L 45 L BUN/Creatinine Ratio 19 14 Glucose 109 H 127 H Calculated Osmolality 286 286 Calcium 9.5 9.6 Corrected Calcium 9.5 9.8 Phosphorus 4.7 Magnesium 1.9 1.8 Total Bilirubin 1.0 1.6 H D AST 64 H 419 H ALT 42 234 H Alkaline Phosphatase 48 58 D Troponin I < 0.002 Total Protein 6.1 5.6 L Albumin 4.1 3.8 Globulin 2.0 L 1.8 L Albumin/Globulin Ratio 2.1 2.1 Lipase 219 H D Quality Measures Quality Measures none Advance care planning discussed with:: patient Assessment & Plan Assessment Current Active Medications: Generic Name Dose Route Start Last Admin Trade Name Freq PRN Reason Stop Dose Admin Acetaminophen 650 mg 10/19/24 04:57 Acetaminophen 325 Mg Tablet PO 11/18/24 04:56 Q6H PRN PAIN SCALE 1-3 (mild Acetaminophen 650 mg 10/19/24 04:57 Acetaminophen 325 Mg Tablet PO 11/18/24 04:56 Q6H PRN Fever >100.4 Hydrocodone Bitart/Acetaminophen 1 tab 10/19/24 04:57 10/20/24 20:30 Hydrocodone/Apap 10/325 Tab PO 10/24/24 04:56 1 tab Q4HR PRN Administration PAIN SCALE 7-10 (Severe Diltiazem 300mg Er 0 ea 10/19/24 21:00 10/20/24 20:31 Capsules PO 11/18/24 20:59 1 capsule HS KILEY Administration Gabapentin 400 mg 10/21/24 10:00 10/21/24 11:01 Gabapentin 100 Mg Capsule PO 11/20/24 09:59 400 mg BID KILEY Administration Hydralazine HCl 10 mg 10/19/24 05:55 Hydralazine Inj 20 Mg/Ml Vial IVP 11/18/24 05:54 Q4HR PRN SBP>180 Ondansetron HCl 4 mg 10/19/24 04:57 Ondansetron Inj 2 Mg/Ml Inj 2 Ml IVP 11/18/24 04:56 Q6H PRN NAUSEA OR VOMITING Protocol Oxycodone/Acetaminophen 1 tab 10/19/24 04:57 Oxycodone/Apap 5/325 Tablet PO 10/24/24 04:56 Q6H PRN PAIN SCALE 4-6 (Moderate Pantoprazole Sodium 40 mg 10/19/24 09:00 10/21/24 09:55 Pantoprazole Inj 40 Mg Vial IVP 11/18/24 08:59 40 mg BID KILEY Administration Valsartan 80 mg 10/20/24 09:00 10/21/24 09:55 Valsartan 80 Mg Tablet PO 11/19/24 08:59 80 mg QDAY KILEY Administration Plan 83-year-old female with a past medical history of hyperlipidemia, hypertension, breast cancer status post bilateral mastectomy, MDD, pancreatitis, history of upper or lower GI bleed that presents to the ED with dark stool and hematemesis. She was found to have a hemoglobin of 13.8 which dropped to 11.5. EKG showed sinus tachycardia with no acute ST segment changes. The patient was admitted for her acute upper GI bleed. #Acute GI bleed upper versus lower #Normocytic anemia #History of upper versus lower GI bleed #Lactic acidosis (resolved) * Two days ago for admission, she had black, watery stool and has since had consistently dark stools. * Morning of 10/18/2024, patient had had two small-volume episodes of hematemesis. She had a similar episode last year with a hemoglobin of 6.8 requiring transfusion; workup at that time, including EGD and colonoscopy, showed reflux esophagitis and diverticulosis without active bleeding. Follow-up GI evaluation was reportedly unremarkable. * Hemoglobin 10.6 on 10/21/2024 down from 11.1 * EGD on 10/20/2024 showed esophagitis of the lower third of the esophagus, moderate inflammation in the entire stomach, normal duodenum Plan: * GI recommends peptic ulcer disease diet * Transfuse if hemoglobin less than 7 #Transaminitis #Elevated lipase * AST 419, ALT 234, lipase 219, total bilirubin 1.6, new morning of 10/21/2024 * Patient endorses diffuse abdominal pain Plan: * Liver ultrasound completed, pending read * Follow-up CMP #Acute Pancreatitis * Patient has mid-epigastric pain and Lipase of 219 * Jordan's Criteria Cumulative score of 3 Plan: * LR 150mL/hr * Follow-up on the patient's ability to tolerate oral intake * Follow-up CMP #History of hypertension * Currently controlled, most recent Plan: * Continue home valsartan 80 mg daily * Hydralazine 10 mg IV every 4 hours as needed #Hypercalcemia (Resolved) #Sinus tachycardia (Resolved) #Lactic acidosis (Resolved) Health maintenance Diet: Peptic ulcer disease diet GI prophylaxis: PROTONIX DVT prophylaxis: SCDs Antibiotics: Not indicated CODE STATUS: FULL CODE Disposition: Pending liver ultrasound report. Patient was seen and discussed with my attending physician Dr. Stewart. Bartolo Hallman DO PGY-1.
[2024-10-21] MEDS: RINGERS LACTATED 1000 ML 1,000 ML 150 ML IV (14:35)
--- NOTE | 2024-10-21 17:09 | PD.IMPROG ---
Documentation for date of: 10/21/24 Subjective Subjective Interval history: Patient evaluated hemoglobin hematocrit 10.6 and 32.7 Chest pain and abdominal pain last night troponin is negative Lipase is 219 Elevated liver enzymes with total bili of 1.6 AST ALT 419 and 234 and alk phos of 83 Liver ultrasound negative and absent gallbladder and CBD of 3 mm Will order triglyceride level and ASHUTOSH for etiology of pancreatitis Exam Vital Signs Temp Pulse Resp BP Pulse Ox O2 Del Method O2 Flow Rate 98.7 F 75 14 122/79 95 Nasal Cannula 2 10/21/24 12:00 10/21/24 12:00 10/21/24 12:00 10/21/24 12:00 10/21/24 12:00 10/21/24 12:00 10/21/24 12:00 Routine Abdominal Exam Comments: Midepigastric right upper quadrant tenderness Objective Labs 10/21/24 04:39 10/21/24 04:39 Labs: Laboratory Results - last 24 hr 10/20/24 10/21/24 23:39 04:39 WBC 7.1 D RBC 3.35 L Hgb 10.6 L Hct 32.7 L MCV 98 MCH 31.6 MCHC 32.4 RDW Std Deviation 47.1 H Plt Count 153 Neut % (Auto) 79 Lymph % (Auto) 14 [place] % (Auto) 6 Eos % (Auto) 0 Baso % (Auto) 0 Neut # (Auto) 5.6 Lymph # (Auto) 1.0 [place] # (Auto) 0.4 Eos # (Auto) 0.0 Baso # (Auto) 0.0 Immature Gran # (Auto) 0.03 H Absolute Nucleated RBC 0.00 Immature Gran % 0 Nucleated RBC % 0 Sodium 142 142 Potassium 3.7 3.9 Chloride 105 104 Carbon Dioxide 27.3 24.7 Anion Gap 10 13 BUN 19 17 Creatinine 1.0 1.2 Estim Creat Clear Calc 36.2 L 30.1 L eGFR 56 L 45 L BUN/Creatinine Ratio 19 14 Glucose 109 H 127 H Calculated Osmolality 286 286 Calcium 9.5 9.6 Corrected Calcium 9.5 9.8 Phosphorus 4.7 Magnesium 1.9 1.8 Total Bilirubin 1.0 1.6 H D AST 64 H 419 H ALT 42 234 H Alkaline Phosphatase 48 58 D Troponin I < 0.002 Total Protein 6.1 5.6 L Albumin 4.1 3.8 Globulin 2.0 L 1.8 L Albumin/Globulin Ratio 2.1 2.1 Lipase 219 H D Impressions Impression: # Gastritis # Atypical chest pain with abdominal pain with a negative gallbladder ultrasound with absent gallbladder and no dilatation of the CBD # abnormal liver function test consider hypoxic hepatitis or passage of a CBD stone Continue to monitor lipase Repeat liver panel in the morning If remains elevated consider MRCP Assessment & Plan A&P Narrative Melena Hematemesis Plan Serial CBC N.p.o. midnight tonight except p.o. meds Consent obtained for fiberoptic esophagogastroduodenoscopy with possible biopsy possible therapeutic intervention under intravenous moderate sedation IV Protonix Will follow the patient other medical problems include Hyperlipidemia Essential hypertension breast carcinoma status post bilateral mastectomy History of pancreatitis Thank you very much for the opportunity to participate in the care of this patient Time Spent With Patient Time: Total time spent is greater than 50% in coordination of care (as documented) at patient's floor/unit and/or counseling patient:
[2024-10-21] MEDS: DILTIAZEM 300 MG PO (20:39)
[2024-10-22] VITALS: BP 114/69; PULSE 63; PULSE 72; RESP 18; TEMP 36.6; O2SAT 98
[2024-10-22 04:00] VITALS: BP 121/63; PULSE 63; PULSE 70; RESP 18; TEMP 36.2; O2SAT 98
[2024-10-22 05:49] VITALS: BMI 22.8
[2024-10-22 06:30] LABS: Basophils # (Auto) 0.0 Thou/mm3 (0.0-0.2); Basophils % (Auto) 1 % (0-2.5); Eosinophils # (Auto) 0.0 Thou/mm3 (0.0-0.5); Eosinophils % (Auto) 1 % (0-10); Hematocrit 33.3 % (36.0-46.0); Hemoglobin 11.0 g/dL (12.0-16.0); Immature Granulocytes Auto 0.01 Thou/mm3 (0.00-0.00); Lymphocytes # (Auto) 1.3 Thou/mm3 (1.0-4.8); Lymphocytes % (Auto) 40 % (10-50); Mean Corpuscular HGB Conc 33.0 g/dl (31.0-37.0); Mean Corpuscular Hemoglobin 31.7 pg (25.0-35.0); Mean Corpuscular Volume 96 fL (80-100); Monocytes # (Auto) 0.3 Thou/mm3 (0.0-0.8); Monocytes % (Auto) 9 % (0-12); Neutrophils # (Auto) 1.6 Thou/mm3 (1.8-7.7); Neutrophils % (Auto) 50 % (37-80); Nucleated Red Blood Cell # 0.00 Thou/mm3 (0.00-0.00); Nucleated Red Blood Cell % 0 /100 WBC (0); Platelet Count 151 Thou/mm3 (140-440); RDW Standard Deviation 46.3 fL (36.4-46.3); Red Blood Count 3.47 Miln/mm3 (4.00-5.20); White Blood Count 3.2 Thou/mm3 (3.6-11.0)
[2024-10-22 08:00] VITALS: BP 128/73; PULSE 83; PULSE 86; RESP 20; TEMP 36.5; O2SAT 95
[2024-10-22 08:13] LABS: Alanine Aminotransferase 212 U/L (10-49); Albumin, Serum 4.0 gm/dL (3.4-4.8); Albumin/Globulin Ratio 2.1 (1.2-2.2); Alkaline Phosphatase 65 U/L (46-116); Anion Gap 10 (7-16); Aspartate Amino Transferase 146 U/L (0-34); BUN/Creatinine Ratio 16 Ratio (12-20); Bilirubin,Direct 0.3 mg/dL (0.0-0.3); Bilirubin,Total 0.9 mg/dL (0.3-1.2); Blood Urea Nitrogen 13 mg/dL (9-23); Calcium 9.7 mg/dL (8.3-10.6); Calcium (Corrected) 9.7 mg/dL (8.5-10.1); Carbon Dioxide 27.3 mMol/L (20.0-31.0); Chloride 106 mMol/L (98-107); Creatinine (Component) 0.8 mg/dL (0.6-1.3); Estimated Creatinine Clearance 45.2 mL/min (>60); Globulin 1.9 gm/dL (2.3-3.5); Glucose 121 mg/dL (74-106); Magnesium 1.9 mg/dL (1.6-2.6); Osmolality,Calculated 286 (275-295); Phosphorous 2.9 mg/dL (2.4-5.1); Potassium 4.4 mMol/L (3.4-5.1); Sodium 143 mMol/L (136-145); Total Protein 5.9 gm/dL (5.7-8.2); eGFR > 60 See Note
[2024-10-22 09:05] VITALS: BP 128/73; PULSE 86
[2024-10-22] MEDS: VIT B12/Vit C/FA (Nephrovite) TABLET 1 TAB PO (09:05)
[2024-10-22] MEDS: VALSARTAN 80 MG TABLET PO (09:05)
[2024-10-22] MEDS: GABAPENTIN 100 MG CAPSULE 400 MG PO (09:05)
--- NOTE | 2024-10-22 09:47 | ESDS_ITS ---
<Statement entered by Olimpia Stewart MD - 10/26/24 14:16> I reviewed above note and agree with findings and plans. I have also personally examined the patient with medicine team and went over assessment and plan with medical team including wildlife biology internship and resident physician. <Statement entered by Eliseo Quispe MD - 10/22/24 14:26> Patient was examined with the team including attending physician. Note reviewed, I agree with the discharge plan as documented. - Eliseo Quispe MD PGY 3 Disclaimer: The document may contain phonetic/typographic errors due to voice recognition software. Planned Discharge Date 10/22/24 DS: Providers Provider Date of admission: 10/19/24 04:57 Primary care physician: Physician No Primary/Family Admitting Provider: Jon Anthony MD Attending Provider on Admission: Olimpia Stewart MD Consults: 10/19/24 01:51 Consult to Gastroenterology Stat Comment: GI bleed Consulting Provider: Michelle Hauser Attending Provider on DC: Olimpia Stewart MD Discharging Provider: Bartolo Hallman DO DS: Diagnosis Discharge Diagnosis (1) GI bleed: Status: Acute Qualifiers: GI bleed type/associated pathology: gastritis Gastritis type: acute gastritis Qualified Code(s): K29.01 - Acute gastritis with bleeding Problem List Completed Was Problem List Reviewed/Reconciled?: Yes Hospital Course Hospital Course Hospital course: Hospital Course: This is an 83-year-old female PMHx of HLD, HTN, breast cancer s/p bilateral mastectomy, MDD, pancreatitis, and historys of upper/lower GI bleed presented to the ED with dark liquidy stool and hematemesis. Hemoglobin initially was 13.8, it trended down to 11.5. The patient was admitted for acute anemia secondary to GI bleed. Endoscopy showed esophagitis, gastritis, and a hiatal hernia. Hemoglobin remained stable. During the patient's hospital stay her LFTs elevated. A liver ultrasound was performed that showed a normal common bile duct and normal portal venous flow with a patent IVC. The liver was 14.6 cm with fatty infiltration and an irregular contour. The following day the patient's LFTs down trended and she was discharged with instructions to follow- up with a PCP within 1 to 2 weeks. Problem List: #Acute GI bleed upper versus lower #Normocytic anemia #History of upper versus lower GI bleed #Transaminitis #Elevated lipase #Acute Pancreatitis #History of hypertension #Hypercalcemia (Resolved) #Sinus tachycardia (Resolved) #Lactic acidosis (Resolved) Discharge Instructions: - Take your Protonix 40mg twice daily to prevent bleeding from the Amanda-Wallis tear. - Follow-up with PCP within 1-2 weeks of discharge - Follow up with GI Dr Hauser within 2 weeks from discharge - Get a complete metabolic panel in 1 week outpatient - Return to ED if symptoms worsen. The patient was seen and discussed with my attending physician Dr. Pat LOPEZ and my senior resident Dr. Quispe PGY3 Bartolo Hallman DO PGY-1 Status at Discharge Cognitive/behavioral status at discharge: Stable and returned to baseline. Time Spent with Patient Time attestation: Total time spent providing and/or coordinating discharge services: More than 50% Time spent: Greater than 30 minutes Exam Vital Signs Temp Pulse Resp BP Pulse Ox O2 Del Method O2 Flow Rate 97.7 F 86 20 128/73 95 Room Air 2 10/22/24 08:00 10/22/24 09:05 10/22/24 08:00 10/22/24 09:05 10/22/24 08:00 10/22/24 08:00 10/21/24 16:00 Narrative Exam General: Awake and in no acute distress. Conversational and non-toxic appearing. Neurologic: GCS 15. Alert and oriented x3, no gross neurological deficit, and patient able to move all 4 extremities. HEENT: Normocephalic, atraumatic, mucous membranes moist. Pupils reactive to light. Heart: Regular rate and rhythm, normal S1 and S2, grade 2 systolic ejection murmur. Lungs: Clear to auscultation bilaterally with no wheezing or crackles. Abdomen: Soft, nondistended, nontender, positive bowel sounds. No guarding or rebound tenderness. Extremities: No edema. 2+ radial and dorsalis pedis pulses bilaterally. Skin: Warm. Dry. No rash or ecchymoses. Discharge Plan Plan Patient Disposition: HOME (Self Care) Patient condition on transfer: Stable Care Plan Goals: - Take your Protonix 40mg twice daily to prevent bleeding from the Amanda-Wallis tear. - Follow-up with PCP within 1-2 weeks of discharge - Follow up with GI Dr Hauser within 2 weeks from discharge - Get a complete metabolic panel in 1 week outpatient - Return to ED if symptoms worsen. Prescriptions/Referrals Prescriptions/Med Rec: New pantoprazole [Protonix] 40 mg tablet,delayed release (DR/EC) 40 mg PO BID 42 Days Qty: 84 0RF Continued diltiazem HCl 300 mg capsule,extended release 24hr 300 mg PO HS gabapentin 400 mg capsule 400 mg PO TID Patient Comments: TAKE 1 CAPSULE BY MOUTH 3 TIMES PER DAY TOLERATED valsartan 80 mg tablet 80 mg PO QDAY pantoprazole 40 mg tablet,delayed release (DR/EC) 40 mg PO QDAY Patient Comments: TAKE 1 TABLET BY MOUTH EVERY DAY trazodone 100 mg tablet 100 mg PO HS Patient Comments: TAKE 1 TABLET BY MOUTH AT BEDTIME Discontinued PreserVision AREDS 4,296 mcg-226 mg-90 mg capsule 1 cap PO QDAY Referrals: No Primary/Family,Physician [Primary Care Provider] Patient/Caregiver Discharge Instructions Discharge Activity: resume usual activities Education Materials: Iron Supplements, Amanda-Wallis Tear, ED Upper GI Bleeding (Stable) Print Language: Wallisian Stand Alone Forms: Valarie Award Info., Patient Portal Info Letter Discharge Order Discharge Orders: Discharge (Routine); Ordered 10/22/24 Ordered By: Bartolo Hallman Quality Discharge Quality Measures none
--- NOTE | 2024-10-22 09:53 | PC.SS ---
Patient should d/c home today with family. No further d/c needs.
[2024-10-22 12:00] VITALS: BP 127/68; PULSE 64; PULSE 68; RESP 17; TEMP 36.3; O2SAT 97
[2024-10-22 13:55] VITALS: BP 105/61; PULSE 76; RESP 24; TEMP 36.4; O2SAT 96
--- NOTE | 2024-10-22 20:07 | PD.IMPROG ---
Documentation for date of: 10/22/24 Subjective Subjective Interval history: late entry for the note Agree with the discharge planning Exam Vital Signs Temp Pulse Resp BP Pulse Ox O2 Del Method O2 Flow Rate 97.6 F 76 24 H 105/61 96 Room Air 2 10/22/24 13:55 10/22/24 13:55 10/22/24 13:55 10/22/24 13:55 10/22/24 13:55 10/22/24 13:55 10/21/24 16:00 Objective Labs 10/22/24 06:09 10/22/24 06:09 Labs: Laboratory Results - last 24 hr 10/22/24 06:09 WBC 3.2 L D RBC 3.47 L Hgb 11.0 L Hct 33.3 L MCV 96 MCH 31.7 MCHC 33.0 RDW Std Deviation 46.3 Plt Count 151 Neut % (Auto) 50 Lymph % (Auto) 40 [place] % (Auto) 9 Eos % (Auto) 1 Baso % (Auto) 1 Neut # (Auto) 1.6 L Lymph # (Auto) 1.3 [place] # (Auto) 0.3 Eos # (Auto) 0.0 Baso # (Auto) 0.0 Immature Gran # (Auto) 0.01 H Absolute Nucleated RBC 0.00 Immature Gran % 0 Nucleated RBC % 0 Sodium 143 Potassium 4.4 D Chloride 106 Carbon Dioxide 27.3 Anion Gap 10 BUN 13 Creatinine 0.8 Estim Creat Clear Calc 45.2 L eGFR > 60 BUN/Creatinine Ratio 16 Glucose 121 H Calculated Osmolality 286 Calcium 9.7 Corrected Calcium 9.7 Phosphorus 2.9 Magnesium 1.9 Total Bilirubin 0.9 D Direct Bilirubin 0.3 AST 146 H ALT 212 H Alkaline Phosphatase 65 Total Protein 5.9 Albumin 4.0 Globulin 1.9 L Albumin/Globulin Ratio 2.1 Impressions Impression: Abnormal liver function test improving atypical chest pain . Resolved abdominal pain No need for GI follow-up okay with discharge planning Assessment & Plan A&P Narrative Melena Hematemesis Plan Serial CBC N.p.o. midnight tonight except p.o. meds Consent obtained for fiberoptic esophagogastroduodenoscopy with possible biopsy possible therapeutic intervention under intravenous moderate sedation IV Protonix Will follow the patient other medical problems include Hyperlipidemia Essential hypertension breast carcinoma status post bilateral mastectomy History of pancreatitis Thank you very much for the opportunity to participate in the care of this patient Time Spent With Patient Time: Total time spent is greater than 50% in coordination of care (as documented) at patient's floor/unit and/or counseling patient:
[2024-10-22 22:42] LABS: Lipase 45 U/L (12-53)
[2024-10-23 09:02] LABS: Amylase 82 U/L (30-118)
== END 2024-10-22 14:03 | disposition home or self-care (01) | DRG 377 ==
LOC: SERX 10-19 01:50 → SERHOLD 10-19 05:21 → S2NX 10-19 06:25
PROVIDERS: Specialist; Admitting Provider Student in an Organized Health Care Education/Training Program; Emergency Provider Emergency Medicine; Visit Provider Internal Medicine
PROC: 0DJ08ZZ Inspection of Upper Intestinal Tract, Via Natural or Artificial Opening Endoscopic (ICD-10-PCS; CPT 43239; principal; 2024-10-20 18:30)
DX: K29.01 Acute gastritis with bleeding (principal); K85.90 Acute pancreatitis without necrosis or infection, unspecified; E87.20 Acidosis, unspecified; D62 Acute posthemorrhagic anemia; I10 Essential (primary) hypertension; K21.00 Gastro-esophageal reflux disease with esophagitis, without bleeding; E78.5 Hyperlipidemia, unspecified; E83.52 Hypercalcemia; R52 Pain, unspecified; I48.91 Unspecified atrial fibrillation; K64.8 Other hemorrhoids; K57.30 Diverticulosis of large intestine without perforation or abscess without bleeding; R00.0 Tachycardia, unspecified; K27.9 Peptic ulcer, site unspecified, unspecified as acute or chronic, without hemorrhage or perforation; K76.0 Fatty (change of) liver, not elsewhere classified; K44.9 Diaphragmatic hernia without obstruction or gangrene; Z90.13 Acquired absence of bilateral breasts and nipples; Z85.3 Personal history of malignant neoplasm of breast
CPT/HCPCS: 36415; 71045; 74174; 76705; 80053; 80076; 81001; 82150; 82248; 83605; 83690; 83735; 84100; 84145; 84443; 84484; 85014; 85018; 85025; 85610; 85652; 85730; 86140; 86850; 86900; 86901; 87040; 87400; 87811; 93005; 96361; 96374; 96375; 96376; 99284; A4649; J2250; J2270; J2405; J2470; J3010; J3490; J7030; J7120; Q9967; A9270

== ENCOUNTER → 2025-01-16 | Outpatient (CLI) | payer MEDICARE, BC, SELFPAY ==
[2025-01-16 15:48] LABS: Basophils # (Auto) 0.0 Thou/mm3 (0.0-0.2); Basophils % (Auto) 0 % (0-2.5); Eosinophils # (Auto) 0.0 Thou/mm3 (0.0-0.5); Eosinophils % (Auto) 0 % (0-10); Hematocrit 44.7 % (36.0-46.0); Hemoglobin 14.6 g/dL (12.0-16.0); Immature Granulocytes Auto 0.01 Thou/mm3 (0.00-0.00); Lymphocytes # (Auto) 1.7 Thou/mm3 (1.0-4.8); Lymphocytes % (Auto) 29 % (10-50); Mean Corpuscular HGB Conc 32.7 g/dl (31.0-37.0); Mean Corpuscular Hemoglobin 30.0 pg (25.0-35.0); Mean Corpuscular Volume 92 fL (80-100); Monocytes # (Auto) 0.4 Thou/mm3 (0.0-0.8); Monocytes % (Auto) 7 % (0-12); Neutrophils # (Auto) 3.7 Thou/mm3 (1.8-7.7); Neutrophils % (Auto) 63 % (37-80); Nucleated Red Blood Cell # 0.00 Thou/mm3 (0.00-0.00); Nucleated Red Blood Cell % 0 /100 WBC (0); Platelet Count 245 Thou/mm3 (140-440); RDW Standard Deviation 48.9 fL (36.4-46.3); Red Blood Count 4.87 Miln/mm3 (4.00-5.20); White Blood Count 5.9 Thou/mm3 (3.6-11.0)
[2025-01-16 16:01] LABS: Glucose Estimated Average 128 mg/dL (80-131); Hemoglobin A1C 6.1 % Hgb (4.8-6.0)
[2025-01-16 16:05] LABS: Alanine Aminotransferase 33 U/L (10-49); Albumin, Serum 4.7 gm/dL (3.4-4.8); Alkaline Phosphatase 73 U/L (46-116); Aspartate Amino Transferase 25 U/L (0-34); Bilirubin,Direct 0.2 mg/dL (0.0-0.3); Bilirubin,Total 0.5 mg/dL (0.3-1.2); Total Protein 7.0 gm/dL (5.7-8.2)
[2025-01-16 16:37] LABS: Hepatitis A Antibody IgM Non Reactive (Non React); Hepatitis B Core Antibody IgM Non Reactive (Non React); Hepatitis B Surface Antigen Non Reactive (Non React); Hepatitis C Antibody Non Reactive (Non React)
== END | disposition home or self-care (01) ==
PROVIDERS: PCP Internal Medicine; Referring Provider Internal Medicine; Visit Provider Internal Medicine
DX: D64.9 Anemia, unspecified (principal); I11.0 Hypertensive heart disease with heart failure; E78.2 Mixed hyperlipidemia; E11.9 Type 2 diabetes mellitus without complications
CPT/HCPCS: 36415; 80074; 80076; 83036; 85025